=== PATIENT | female | born 1980 | race Caucasian/White ===

== ENCOUNTER 2018-04-12 14:02 | Emergency (ER) | payer OTHER ==
[~2018-04-12] VITALS: Ht 162.6 cm; Wt 106.8 kg
[~2018-04-12 14:02] MED LIST: OXYC-57 PO; PHEN-775 PO; TAMS0.4C38 PO
[2018-04-12 14:04] VITALS: TEMP 36.8; Ht 162.6 cm; Wt 106.8 kg
[2018-04-12] MEDS ORDERED: CEFAZOLIN SOD 1000MG/7.5 ML IV PUSH IV STA (14:23)
[2018-04-12] MEDS ORDERED: MoRPHine SULFATE 4 MG/ML 1 ML CARP\\VIAL IV STA (14:23)
[2018-04-12] MEDS ORDERED: ONDANSETRON INJ 2 MG/ML 2 ML VIAL IV STA (14:23)
[2018-04-12] MEDS ORDERED: LIDOCAINE/EPINEPHRINE 1% 20 ML VIAL INFIL ONE (14:30)
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
[2018-04-12] MEDS ORDERED: CEPHALEXIN 500MG HOME PACK 1 EA BTL PO ONE (16:00)
[2018-04-12] MEDS ORDERED: CEPH500C2 PO (16:16)
[2018-04-12 16:47] VITALS: BP 142/96; PULSE 85; O2SAT 96
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
== END 2018-04-12 16:48 | disposition home or self-care (01) ==
LOC: C.EDB 14:04 → C.EDC 16:48
DX: S61.422A Laceration with foreign body of left hand, initial encounter (principal); S63.265A Dislocation of metacarpophalangeal joint of left ring finger, initial encounter; S66.922A Laceration of unspecified muscle, fascia and tendon at wrist and hand level, left hand, initial encounter; V86.55XA Driver of 3- or 4- wheeled all-terrain vehicle (ATV) injured in nontraffic accident, initial encounter; F17.210 Nicotine dependence, cigarettes, uncomplicated; Z79.899 Other long term (current) drug therapy

== ENCOUNTER 2018-04-22 12:05 | Emergency (ER) | payer OTHER ==
[~2018-04-22] VITALS: Ht 162.6 cm; Wt 106.4 kg
[~2018-04-22 12:05] MED LIST changes: +CEPH500C2 PO
[2018-04-22 12:08] VITALS: TEMP 36.6
[2018-04-22] MEDS ORDERED: KETOROLAC TROMETHAMINE 30 MG/ML VIAL IV STA (12:26)
[2018-04-22] MEDS ORDERED: ONDANSETRON INJ 2 MG/ML 2 ML VIAL IV STA (12:26)
[2018-04-22] MEDS ORDERED: SODIUM CHLORIDE 0.9% 500ML 500 ML IV STA (12:26)
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
[2018-04-22 12:37] VITALS: O2SAT 98; Ht 162.6 cm; Wt 106.4 kg
[2018-04-22 12:48] LABS: BASO % 0.3 %; BASO ABS # 0.04 K/uL (0-0.2); EOS % 2.5 %; EOS ABS # 0.31 K/uL (0-0.5); HEMATOCRIT 46.1 % (37-47); HEMOGLOBIN 15.7 g/dL (12.0-16.0); IG# 0.08 K/uL (0.00-0.02); LYMPH % 20.6 %; LYMPH ABS # 2.54 K/uL (1.2-3.4); MEAN CELL VOLUME 91.7 fL (80-100); MEAN CORPUSCULAR HEMOGLOBIN 31.2 pg (25-34); MEAN CORPUSCULAR HGB CONC 34.1 g/dl (32-36); MEAN PLATELET VOLUME 9.2 fL (7.4-10.4); MONO % 5.4 %; MONO ABS # 0.67 K/uL (0.11-0.59); NEUT % 70.6 %; NEUT ABS # 8.71 K/uL (1.4-6.5); PLATELET COUNT 328 K/uL (130-400); RED CELL DISTRIBUTION WIDTH CV 13.7 % (11.5-14.5); RED CELL DISTRIBUTION WIDTH SD 46.1 fL (36.4-46.3); WHITE BLOOD COUNT 12.35 K/uL (4.8-10.8)
[2018-04-22 12:56] LABS: INR 0.9 (0.9-1.1); PTT PATIENT 27.3 SECONDS (21.0-31.0)
[2018-04-22] MEDS ORDERED: BUPR150T7 PO (12:57)
[2018-04-22] MEDS ORDERED: FLUO20CA37 PO (12:57)
[2018-04-22] MEDS ORDERED: MELO-84 PO (12:57)
[2018-04-22 13:06] LABS: ALBUMIN 3.6 gm/dl (3.4-5.0); CALCIUM 9.1 mg/dl (8.5-10.1); CREATININE 0.86 mg/dl (0.60-1.20); POTASSIUM 4.2 mmol/L (3.5-5.1); TOTAL PROTEIN 7.6 gm/dl (6.4-8.2)
[2018-04-22 13:52] VITALS: BP 127/80; PULSE 80; O2SAT 99
== END 2018-04-22 13:53 | disposition home or self-care (01) ==
LOC: C.EDB 12:06 → C.EDC 13:53
DX: R42 Dizziness and giddiness (principal); N93.9 Abnormal uterine and vaginal bleeding, unspecified; F17.200 Nicotine dependence, unspecified, uncomplicated; Z79.899 Other long term (current) drug therapy; Z88.2 Allergy status to sulfonamides

== ENCOUNTER 2020-03-19 21:39 | Inpatient (IN) ==
[2020-03-19] MEDS ORDERED: MoRPHine SULFATE 4 MG/ML 1 ML CARP\\VIAL IV STA (21:48)
[2020-03-19] MEDS ORDERED: ONDANSETRON INJ 2 MG/ML 2 ML VIAL IV STA (21:48)
[2020-03-19] MEDS ORDERED: SODIUM CHLORIDE 0.9% 1000ML 1,000 ML IV ONE ×2 (21:48→22:01)
[2020-03-19] MEDS ORDERED: PIPERACILLIN/TAZOBACTAM 4.5 GM/120 ML BAG IV ONE (21:56)
[2020-03-19] MEDS ORDERED: PIPERACILL/TAZOBAC CONSULT ACTIVE PRN (21:56)
[2020-03-19 22:20] LABS: Appearance Urine Clear (Clear); Bacteria Urine Automated 2+ (Negative); Bilirubin Urine Negative (Negative); Blood Urine 2+ (Negative); Color Urine Yellow; Glucose Urine UA Negative (Negative); Ketones Urine Negative (Negative); Leukocyte Esterase Urine 2+ (Negative); Nitrite Urine Negative (Negative); Protein Urine Negative (Negative); Specific Gravity Urine 1.013 (1.000-1.030); Urobilinogen Urine Negative (Negative); WBC Urine Automated >30 /hpf (0-5)
[2020-03-19 22:50] LABS: Basophils # (auto) 0.02 K/uL (0-0.2); Basophils % (auto) 0.1 %; Eosinophils # (auto) 0.04 K/uL (0-0.5); Eosinophils % (auto) 0.2 %; Hematocrit (blood only) 41.4 % (37-47); Hemoglobin 13.9 g/dL (12.0-16.0); Immature Granulocytes # (auto) 0.07 K/uL (0.00-0.02); Immature Granulocytes % (auto) 0.3 %; Lymphocytes # (auto) 1.08 K/uL (1.2-3.4); Lymphocytes % (auto) 5.4 %; Mean Corpuscular Hemoglobin 30.3 pg (25-34); Mean Corpuscular Hgb Conc 33.6 g/dL (32-36); Mean Corpuscular Volume 90.4 fL (80-100); Mean Platelet Volume 9.9 fL (7.4-10.4); Monocytes # (auto) 1.22 K/uL (0.11-0.59); Monocytes % (auto) 6.1 %; Neutrophils # (auto) 17.71 K/uL (1.4-6.5); Neutrophils % (auto) 87.9 %; Platelet Count 284 K/uL (130-400); RDW Coefficient of Variation 14.1 % (11.5-14.5); RDW Standard Deviation 46.9 fL (36.4-46.3); Red Blood Count 4.58 M/uL (4.2-5.4); White Blood Count 20.14 K/uL (4.8-10.8)
[2020-03-19 23:00] LABS: Albumin Level 3.6 gm/dl (3.4-5.0); BUN Creatinine Ratio 15.6 (10-20); Calcium 8.8 mg/dl (8.5-10.1); Creatinine Clr Calc Pharmacy 69.7 ml/min; Est GFR (African American) 58.9; Est GFR (Non-African American) 50.8; Magnesium 1.9 mg/dl (1.8-2.4); Potassium 3.7 mmol/L (3.5-5.1)
[2020-03-19 23:01] LABS: Partial Thromboplastin Ratio 1.1; Partial Thromboplastin Time 29.9 Seconds (21.0-31.0); Prothrombin Time 10.3 Seconds (9.0-12.0)
[2020-03-19 23:03] LABS: Bilirubin,Total 0.9 mg/dl (0.2-1); Globulin 3.7 gm/dl (2.5-4.0); Total Protein 7.3 gm/dl (6.4-8.2)
[2020-03-19] MEDS ORDERED: NORMOSOL-R 1,000 ML IV ONE (23:13)
[2020-03-19] MEDS ORDERED: POTASSIUM CHLORIDE 20 MEQ TABCR PO STA (23:13)
--- NOTE | 2020-03-19 23:15 | Emergency Department Note ---
History of Present Illness General Chief complaint: Kidney Stone Stated complaint: FEVER History of Present Illness Maximum Pain Intensity: 4 This 39-year-old presents to the ER complaining of fever, chills, flank pain and nausea who was seen here last night and diagnosed with a kidney stone Location: Generalized Quality: Achy Severity: Moderate Duration: Today Timing: Today Context: Patient felt much worse and came back in Modifying factors: better with nothing; worse with activity Patient states she had temperature of 99.9. She took Percocet. Patient felt quite ill and came back in. Patient denies cough, congestion, chest pain, dyspnea, flulike illness. Home Medications Home Medications Medication Instructions Recorded Confirmed Type bupropion HCl [Wellbutrin SR] 150 mg PO Q12 06/17/19 03/19/20 History fluoxetine 60 mg PO DAILY 03/19/20 03/19/20 History ibuprofen 600 mg PO Q6H PRN 03/19/20 03/19/20 History oxycodone-acetaminophen [Percocet] 2 tab PO Q6H PRN #20 tab 03/19/20 03/19/20 Rx tamsulosin [Flomax] 0.4 mg PO DAILY #7 cap 03/19/20 03/19/20 Rx Allergies Allergy/AdvReac Type Severity Reaction Status Date / Time Sulfa (Sulfonamide Allergy Severe TONGUE Verified 03/19/20 05:18 Antibiotics) SWELLING Past Med/Surg History Medical History Left ureteral calculus (Acute) No significant past medical history Surgical History No pertinent past surgical history Social History Feels Safe at Home: Yes Smoking Status: Current every day smoker Review of Systems A total of 10 systems reviewed and were otherwise negative Physical Exam Vital Signs Vital Signs - 24 hr 03/19/20 21:42 03/19/20 21:56 03/19/20 22:28 Temperature 37.2 C Temperature Source Oral Pulse Rate 120 H Pulse Rate [Apical] 114 H Respiratory Rate 12 18 Respiratory Effort / Characteristics Non-Labored Spontaneous Respiratory Depth Normal Blood Pressure 148/87 H Blood Pressure [Left Arm] 116/60 Blood Pressure Mean 107 Blood Pressure Mean [Left Arm] 78 Pulse Oximetry 98 96 98 Oxygen Delivery Method Room Air Room Air Room Air Sepsis Recent Fever Within 48 Hours No Sepsis New/Unexplained Change in Mental Status No Sepsis Action Taken by Nursing No Action Required 03/19/20 23:30 Temperature Temperature Source Pulse Rate Pulse Rate [Apical] 120 H Respiratory Rate 21 Respiratory Effort / Characteristics Respiratory Depth Blood Pressure Blood Pressure [Left Arm] 124/69 Blood Pressure Mean Blood Pressure Mean [Left Arm] 87 Pulse Oximetry 95 Oxygen Delivery Method Room Air Sepsis Recent Fever Within 48 Hours Sepsis New/Unexplained Change in Mental Status Sepsis Action Taken by Nursing VITALS: Vitals are noted on the nurse's note and reviewed by myself. Vital signs tachycardic. GENERAL: Pleasant female ill-appearing SKIN: The skin was without rashes, erythema, edema, or bruising. There is no tenting of the skin. Capillary reflex less than 2 seconds. HEAD: Normocephalic atraumatic. EARS: External auditory canals clear, tympanic membranes pearly cerrato without erythema or effusion bilaterally. EYES: Pupils equal round and reactive to light and accommodation. Conjunctivae without injection, sclerae without icterus. Extraocular movements intact. NOSE: Patent, turbinates without inflammation or discharge. No sinus tenderness. MOUTH: Mucous membranes mildly dry t. Pharynx without erythema or exudate. Uvula midline. Airway patent. Tongue does not deviate. NECK: Supple without nuchal rigidity. No lymphadenopathy. No thyromegaly. Cervical spine is nontender. No JVD. HEART: Regular rate and rhythm without murmurs gallops or rubs. LUNGS: Clear to auscultation bilaterally without wheezes, rales or rhonchi. No retractions or accessory muscle use. ABDOMEN: Positive bowel sounds x 4. Normal tympanic percussion. Soft, nontender, without masses or organomegaly. Law sign negative. No guarding or rebound tenderness. Left CVA tenderness MUSCULOSKELETAL: No muscle atrophy, erythema, or edema noted. NEURO: Patient was alert and oriented to person place and time. No focal neurological deficits. Course Administered Medications Discontinued Medications Sodium Chloride (Nss 1000ml) 1,000 mls @ 999 mls/hr IV .Q1H1M ONE Stop: 03/19/20 22:48 Last Infusion: 03/19/20 23:33 Dose: 0 mls/hr Documented by: [id number] Admin: 03/19/20 22:24 Dose: 999 mls/hr Documented by: [id number] Piperacillin Sod/Tazobactam Sod (Zosyn) 4.5 gm in 120 mls @ 240 mls/hr IV NOW ONE Stop: 03/19/20 22:25 Last Infusion: 03/19/20 22:58 Dose: 0 mls/hr Documented by: [id number] Admin: 03/19/20 22:25 Dose: 240 mls/hr Documented by: [id number] Sodium Chloride (Nss 1000ml) 1,000 mls @ 999 mls/hr IV .Q1H1M ONE Stop: 03/19/20 23:01 Last Infusion: 03/19/20 23:33 Dose: 0 mls/hr Documented by: [id number] Admin: 03/19/20 22:24 Dose: 999 mls/hr Documented by: [id number] Morphine Sulfate (Morphine Sulfate) 4 mg IV NOW STA Stop: 03/19/20 21:49 Last Admin: 03/19/20 22:24 Dose: 4 mg Documented by: [id number] Ondansetron HCl (Zofran) 4 mg IV NOW STA Stop: 03/19/20 21:49 Last Admin: 03/19/20 22:24 Dose: 4 mg Documented by: [id number] Potassium Chloride (Klor-Con M20) 40 meq PO NOW STA Stop: 03/19/20 23:14 Last Admin: 03/19/20 23:30 Dose: 40 meq Documented by: [id number] Medical Decision Making Medical Records Attestation: I reviewed the patient's medical records. Home Medications Current Medication List: was personally reviewed by me Laboratory Data Attestation: I reviewed the patient's lab results. Result diagrams: 03/19/20 22:16 03/19/20 22:16 Lab Results 03/19/20 03/19/20 03/19/20 Range/Units 22:00 22:16 22:16 WBC 20.14 H (4.8-10.8) K/uL RBC 4.58 (4.2-5.4) M/uL Hgb 13.9 (12.0-16.0) g/dL Hct 41.4 (37-47) % MCV 90.4 (80-100) fL MCH 30.3 (25-34) pg MCHC 33.6 (32-36) g/dL RDW Std Deviation 46.9 H (36.4-46.3) fL RDW Coeff of Aniket 14.1 (11.5-14.5) % Plt Count 284 (130-400) K/uL MPV 9.9 (7.4-10.4) fL Immature Gran % (Auto) 0.3 % Neut % (Auto) 87.9 % Lymph % (Auto) 5.4 % [place] % (Auto) 6.1 % Eos % (Auto) 0.2 % Baso % (Auto) 0.1 % Neut # (Auto) 17.71 H (1.4-6.5) K/uL Lymph # (Auto) 1.08 L (1.2-3.4) K/uL [place] # (Auto) 1.22 H (0.11-0.59) K/uL Eos # (Auto) 0.04 (0-0.5) K/uL Baso # (Auto) 0.02 (0-0.2) K/uL Immature Gran # (Auto) 0.07 H (0.00-0.02) K/uL PT (9.0-12.0) Seconds INR (0.9-1.1) APTT (21.0-31.0) Seconds PTT Ratio Sodium 135 L (136-145) mmol/L Potassium 3.7 (3.5-5.1) mmol/L Chloride 104 (98-107) mmol/L Carbon Dioxide 23 (21-32) mmol/L Anion Gap 9.0 (3-11) BUN 20 H (7-18) mg/dl Creatinine 1.31 H (0.6-1.2) mg/dl Est Cr Clr Drug Dosing 69.7 ml/min Est GFR ( Amer) 58.9 Est GFR (Non-Af Amer) 50.8 BUN/Creatinine Ratio 15.6 (10-20) Glucose 108 H (70-99) mg/dl Lactate (0.4-2.0) mmol/L Calcium 8.8 (8.5-10.1) mg/dl Magnesium 1.9 (1.8-2.4) mg/dl Total Bilirubin 0.9 (0.2-1) mg/dl AST 14 L (15-37) U/L ALT 25 (12-78) U/L Alkaline Phosphatase 74 (45-117) U/L Total Protein 7.3 (6.4-8.2) gm/dl Albumin 3.6 (3.4-5.0) gm/dl Globulin 3.7 (2.5-4.0) gm/dl Albumin/Globulin Ratio 1.0 (0.9-2) Urine Color Yellow Urine Appearance Clear (Clear) Urine pH 6.0 (4.5-7.5) Ur Specific [place] 1.013 (1.000-1.030) Urine Protein Negative (Negative) Urine Glucose (UA) Negative (Negative) Urine Ketones Negative (Negative) Urine Blood 2+ H (Negative) Urine Nitrite Negative (Negative) Urine Bilirubin Negative (Negative) Urine Urobilinogen Negative (Negative) Ur Leukocyte Esterase 2+ H (Negative) Urine WBC (Auto) >30 H (0-5) /hpf Urine RBC (Auto) 5-10 H (0-4) /hpf U Hyaline Cast (Auto) 1-5 (0-5) /lpf U Epithel Cells (Auto) 10-20 H (0-5) /lpf Urine Bacteria (Auto) 2+ H (Negative) 03/19/20 03/19/20 Range/Units 22:39 22:39 WBC (4.8-10.8) K/uL RBC (4.2-5.4) M/uL Hgb (12.0-16.0) g/dL Hct (37-47) % MCV (80-100) fL MCH (25-34) pg MCHC (32-36) g/dL RDW Std Deviation (36.4-46.3) fL RDW Coeff of Aniket (11.5-14.5) % Plt Count (130-400) K/uL MPV (7.4-10.4) fL Immature Gran % (Auto) % Neut % (Auto) % Lymph % (Auto) % [place] % (Auto) % Eos % (Auto) % Baso % (Auto) % Neut # (Auto) (1.4-6.5) K/uL Lymph # (Auto) (1.2-3.4) K/uL [place] # (Auto) (0.11-0.59) K/uL Eos # (Auto) (0-0.5) K/uL Baso # (Auto) (0-0.2) K/uL Immature Gran # (Auto) (0.00-0.02) K/uL PT 10.3 (9.0-12.0) Seconds INR 1.0 (0.9-1.1) APTT 29.9 (21.0-31.0) Seconds PTT Ratio 1.1 Sodium (136-145) mmol/L Potassium (3.5-5.1) mmol/L Chloride (98-107) mmol/L Carbon Dioxide (21-32) mmol/L Anion Gap (3-11) BUN (7-18) mg/dl Creatinine (0.6-1.2) mg/dl Est Cr Clr Drug Dosing ml/min Est GFR ( Amer) Est GFR (Non-Af Amer) BUN/Creatinine Ratio (10-20) Glucose (70-99) mg/dl Lactate 1.9 (0.4-2.0) mmol/L Calcium (8.5-10.1) mg/dl Magnesium (1.8-2.4) mg/dl Total Bilirubin (0.2-1) mg/dl AST (15-37) U/L ALT (12-78) U/L Alkaline Phosphatase (45-117) U/L Total Protein (6.4-8.2) gm/dl Albumin (3.4-5.0) gm/dl Globulin (2.5-4.0) gm/dl Albumin/Globulin Ratio (0.9-2) Urine Color Urine Appearance (Clear) Urine pH (4.5-7.5) Ur Specific [place] (1.000-1.030) Urine Protein (Negative) Urine Glucose (UA) (Negative) Urine Ketones (Negative) Urine Blood (Negative) Urine Nitrite (Negative) Urine Bilirubin (Negative) Urine Urobilinogen (Negative) Ur Leukocyte Esterase (Negative) Urine WBC (Auto) (0-5) /hpf Urine RBC (Auto) (0-4) /hpf U Hyaline Cast (Auto) (0-5) /lpf U Epithel Cells (Auto) (0-5) /lpf Urine Bacteria (Auto) (Negative) Imaging Data Attestation: I personally reviewed and interpreted this imaging study as follows: Blood Pressure Blood Pressure Findings: Normal blood pressure MDM Narrative Prior records/ancillary studies reviewed. Triage Nursing notes reviewed. The patient's history was concerning for fever. Differential diagnosis: Etiologies such as infected kidney stone, viral syndrome, otitis, pharyngitis, pneumonia, influenza, meningitis, urinary tract infection, sepsis, bacteremia, as well as others were entertained. Physical examination: As above ER treatment provided: An order was placed for continuous cardiac monitoring. The monitor shows a rate of 60-1 20 with a sinus rhythm. IV fluids, morphine, Zofran, Zosyn On reassessment the patient felt better. Diagnostics interpreted by me: ECG: Ordered for sepsis EKG: Normal sinus, normal intervals, no acute ST-T wave changes, rate of 117. Impression sinus tachycardia interpreted myself I think arrhythmia is unlikely. EKG shows normal sinus rhythm with no interval abnormalities such as QT prolongation or WPW. There are no findings to suggest Brugada syndrome. Cardiac monitoring in the emergency department reveals no tachycardic or bradycardic dysrhythmia. Hypertrophic cardiomyopathy was considered but there are no clear historical elements pointing toward this. EKG is not suggestive. The QRS voltage is not extremely large and there are no suggestive Q waves. The labs revealed leukocytosis, urine concerning for infection and sent for culture Blood cultures pending Slightly elevated creatinine from yesterday Imaging studies: Chest x-ray with no acute consolidation, pneumothorax or free air per my interpretation ABDOMEN AND PELVIS CT WITHOUT CONTRAST CT DOSE: 1322.60 mGy.cm HISTORY: Acute left-sided flank pain with clinical concern for kidney stones. eval for left sided stone TECHNIQUE: Multiaxial CT images of the abdomen and pelvis were performed without contrast. A dose lowering technique was utilized adhering to the principles of ALARA. COMPARISON STUDY: CT abdomen and pelvis 08/09/2013 FINDINGS: Minimal subsegmental bibasilar atelectasis. No pneumatosis or pneumoperitoneum. The imaged inferior cardiac chambers appear unremarkable. There is suggestion of mild hepatic steatosis. Evaluation of the solid abdominal organs is limited without use of IV contrast. The spleen, pancreas and adrenal glands are unr emarkable. 4 mm nonobstructing calculus of the inferior pole right kidney. There is moderate left-sided hydroureteronephrosis secondary to an obstructing 6 x 4 x 8 mm calculus of the proximal left ureter just distal to the ureteropelvic junction seen at the level of the L2 vertebral body. Reactive perinephric and periureteral stranding. Partially decompressed urinary bladder. Mild nodularity of the fundal uterus may reflect while myomata. Unremarkable appearance of the adnexa. Aorta and IVC are unremarkable. No adenopathy. No bowel obstruction or bowel wall thickening. Mild colonic diverticulosis without acute diverticulitis. Noninflamed appendix. Tiny fat filled periumbilical hernia. Soft tissues are unremarkable. Spondylitic spurring and facet arthrosis of the lumbar spine incidentally noted. IMPRESSION: 1. Moderate left-sided hydroureteronephrosis secondary to an obstructing 6 x 4 x 8 mm calculus of the proximal left ureter just distal to the ureteropelvic junction at the level of L2. 2. Nonobstructing right nephrolithiasis. 3. No bowel obstruction or bowel wall thickening. ACT 112: Negative or not required by law. KUB with no free air or obvious obstruction per my interpretation. Consultation: A consultation was placed with Dr. Ortega, hospitalist. The case was discussed and diagnostics were reviewed. The patient was evaluated in the ER for further treatment. This appears to be consistent with infected kidney stone. Patient was immediately started on IV antibiotics. Patient given IV fluids, pain meds and blood cultures were sent. Medicine was consulted. Patient will be admitted. By the evaluation outlined above emergent etiologies such as otitis, pharyngitis, pneumonia, meningitis, as well as others were deemed relatively unlikely. The pt informed about the findings as listed above. All questions were answered and pleased with the treatment. The chart was completed utilizing [employer] Speech voice recognition software. Grammatical errors, random word insertions, pronoun errors, and incomplete sentences are an occassional consequence of this system due to software limitations, ambient noise, and hardware issues. Any formal questions or concerns about the content, text, or information contained within the body of this dictation should be directly addressed to the physician learning and development assistant for clarification. Impression & Plan UTI (lower urinary tract infection), Left ureteral calculus, Renal colic Discharge Plan Visit Data Chief Complaint: Kidney Stone Stated Complaint: FEVER ED Provider: Kevyn Valdovinos ED Midlevel Provider: Leidy Cheatham Discharge Problem: UTI (lower urinary tract infection), Left ureteral calculus, Renal colic Patient Disposition: Admitted As Inpatient Condition: Fair Forms Stand Alone Forms: My [facility] Prescriptions Prescriptions: No Action bupropion HCl [Wellbutrin SR] 150 mg Tablet Sustained-Release 12 Hr 150 mg PO Q12 RF: 0 fluoxetine 60 mg Tablet 60 mg PO DAILY RF: 0 oxycodone-acetaminophen [Percocet] 5-325 mg tablet 2 tab PO Q6H PRN (Reason: pain) Qty: 20 RF: 0 tamsulosin [Flomax] 0.4 mg capsule 0.4 mg PO DAILY Qty: 7 RF: 0 ibuprofen 200 mg Tablet 600 mg PO Q6H PRN (Reason: Pain) RF: 0 Referrals Referrals: Lai Kathleen MD [Primary Care Provider] -
[2020-03-19] MEDS ORDERED: NORMOSOL-R 250 ML IV STA (23:22)
--- NOTE | 2020-03-20 00:24 | History & Physical Report ---
Date of Service March 20, 2020 Assessment & Plan (1) Severe sepsis: SIRS plus ARF secondary to complicated UTI obstructive uropathy secondary to recurrent urolithiasis Situational hypertension mood disorder, at baseline Ongoing tobacco abuse Medical telemetry Cultures, Cefepime for now Continue Flomax Monitor creatinine response to IVF Urology consult Re: Obstructive uropathy N.p.o. until patient seen by urology in anticipation of urgent procedure in light of sepsis Analgesia Nicotine patch DVT prophylaxis. Lovenox subcu Full code Text document was generated using [employer] voice recognition software. It may contain grammatical or spelling errors. Kindly contact undersigned for clarification of any documentation item in question. History of Present Illness Chief Complaint: Fever, worsening kidney stone pain Primary Care Provider: Lai Kathleen MD History obtained from patient and records. Medical history is significant for urolithiasis, mood disorder, PCOS as per records, tobacco abuse. Last confinement 2012 for complicated UTI secondary to obstructive uropathy from left kidney stone. Patient underwent cystoscopy/stent placement. Patient seen at the ER yesterday metal cutter after being roused from sleep by 80 left flank pain similar to kidney stone attack. No fever, no chills, no hematuria. CT abdomen pelvis yesterday morning showed : 1. Moderate left-sided hydroureteronephrosis secondary to an obstructing 6 x 4 x 8 mm calculus of the proximal left ureter just distal to the ureteropelvic junction at the level of L2. 2. Nonobstructing right nephrolithiasis. 3. No bowel obstruction or bowel wall thickening. Patient discharged home with Flomax and Percocet prescriptions, in early hope of being able to pass stone at home. At home, left flank pain noted to be worsening unrelieved by pain medication. Low-grade fever at home. No chest pain, no S OB. At baseline, patient received Zosyn for sepsis. MEDICAL HISTORY: As above. SURGICAL HISTORY: 1. Tubal ligation. 2. Lithotripsy. FAMILY HISTORY: Kidney stones, diabetes. PERSONAL SOCIAL HISTORY: 1 pack daily, no chronic intake of alcoholic beverages. 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 Allergies Allergy/AdvReac Type Severity Reaction Status Date / Time Sulfa (Sulfonamide Allergy Severe TONGUE Verified 03/19/20 05:18 Antibiotics) SWELLING Home Medications Home Medications Medication Instructions Recorded Confirmed Type bupropion HCl [Wellbutrin SR] 150 mg PO Q12 06/17/19 03/19/20 History fluoxetine 60 mg PO DAILY 03/19/20 03/19/20 History ibuprofen 600 mg PO Q6H PRN 03/19/20 03/19/20 History oxycodone-acetaminophen [Percocet] 2 tab PO Q6H PRN #20 tab 03/19/20 03/19/20 Rx tamsulosin [Flomax] 0.4 mg PO DAILY #7 cap 03/19/20 03/19/20 Rx Past Med/Surg History Medical History Left ureteral calculus (Acute) Morbid obesity No significant past medical history Surgical History No pertinent past surgical history Social History Beliefs That Will Affect Care: None Current Living Situation: Family Other Information That Helps Us Care for You: No Feels Safe at Home: Yes Safety Concerns: Feels Safe At This Time Smoking Status: Current every day smoker Hx Substance Use: No Review of Systems Review of Systems: As per HPI, all 10 systems reviewed, left ankle pain for a few months now attributed by Ortho specialist to tendinitis, all other ROS negative Physical Exam Physical Exam: GENERAL: uncomfortable, obese, looks older than stated age, no respiratory distress SKIN: Normal color, warm HEENT: Bespectacled, [place] palpebral conjunctivae, no ptosis, dry buccal mucosa NECK : Supple, short neck, no tenderness CHEST : Decreased breath sounds, no tenderness HEART : Tachycardic, no obvious murmurs ABDOMEN: Some distention, left flank tenderness EXTREMITIES : Minimal LE swelling, no LE tenderness, no other conspicuous deformities noted NEUROLOGIC : Coherent, no facial asymmetry, no other gross focality Results & Data Results & Data ([facility]) Vital Signs (Past 12 Hours) Vital Signs Temp Pulse Pulse Resp BP BP Pulse Ox 03/19/20 23:30 120 H 21 124/69 95 03/19/20 22:28 114 H 18 116/60 98 03/19/20 21:56 96 03/19/20 21:42 37.2 C 120 H 12 148/87 H 98 Laboratory Results Laboratory Results WBC 20.14 K/uL (4.8-10.8) H 03/19/20 22:16 RBC 4.58 M/uL (4.2-5.4) 03/19/20 22:16 Hgb 13.9 g/dL (12.0-16.0) 03/19/20 22:16 Hct 41.4 % (37-47) 03/19/20 22:16 MCV 90.4 fL (80-100) 03/19/20 22:16 MCH 30.3 pg (25-34) 03/19/20 22:16 MCHC 33.6 g/dL (32-36) 03/19/20 22:16 RDW Std Deviation 46.9 fL (36.4-46.3) H 03/19/20 22:16 RDW Coeff of Aniket 14.1 % (11.5-14.5) 03/19/20 22:16 Plt Count 284 K/uL (130-400) 03/19/20 22:16 MPV 9.9 fL (7.4-10.4) 03/19/20 22:16 Immature Gran % (Auto) 0.3 % 03/19/20 22:16 Neut % (Auto) 87.9 % 03/19/20 22:16 Lymph % (Auto) 5.4 % 03/19/20 22:16 [place] % (Auto) 6.1 % 03/19/20 22:16 Eos % (Auto) 0.2 % 03/19/20 22:16 Baso % (Auto) 0.1 % 03/19/20 22:16 Neut # (Auto) 17.71 K/uL (1.4-6.5) H 03/19/20 22:16 Lymph # (Auto) 1.08 K/uL (1.2-3.4) L 03/19/20 22:16 [place] # (Auto) 1.22 K/uL (0.11-0.59) H 03/19/20 22:16 Eos # (Auto) 0.04 K/uL (0-0.5) 03/19/20 22:16 Baso # (Auto) 0.02 K/uL (0-0.2) 03/19/20 22:16 Immature Gran # (Auto) 0.07 K/uL (0.00-0.02) H 03/19/20 22:16 PT 10.3 Seconds (9.0-12.0) 03/19/20 22:39 INR 1.0 (0.9-1.1) 03/19/20 22:39 APTT 29.9 Seconds (21.0-31.0) 03/19/20 22:39 PTT Ratio 1.1 03/19/20 22:39 Sodium 135 mmol/L (136-145) L 03/19/20 22:16 Potassium 3.7 mmol/L (3.5-5.1) 03/19/20 22:16 Chloride 104 mmol/L (98-107) 03/19/20 22:16 Carbon Dioxide 23 mmol/L (21-32) 03/19/20 22:16 Anion Gap 9.0 (3-11) 03/19/20 22:16 BUN 20 mg/dl (7-18) H 03/19/20 22:16 Creatinine 1.31 mg/dl (0.6-1.2) H 03/19/20 22:16 Est Cr Clr Drug Dosing 69.7 ml/min 03/19/20 22:16 Est GFR ( Amer) 58.9 03/19/20 22:16 Est GFR (Non-Af Amer) 50.8 03/19/20 22:16 BUN/Creatinine Ratio 15.6 (10-20) 03/19/20 22:16 Glucose 108 mg/dl (70-99) H 03/19/20 22:16 Lactate 1.9 mmol/L (0.4-2.0) 03/19/20 22:39 Calcium 8.8 mg/dl (8.5-10.1) 03/19/20 22:16 Magnesium 1.9 mg/dl (1.8-2.4) 03/19/20 22:16 Total Bilirubin 0.9 mg/dl (0.2-1) 03/19/20 22:16 AST 14 U/L (15-37) L 03/19/20 22:16 ALT 25 U/L (12-78) 03/19/20 22:16 Alkaline Phosphatase 74 U/L (45-117) 03/19/20 22:16 Total Protein 7.3 gm/dl (6.4-8.2) 03/19/20 22:16 Albumin 3.6 gm/dl (3.4-5.0) 03/19/20 22:16 Globulin 3.7 gm/dl (2.5-4.0) 03/19/20 22:16 Albumin/Globulin Ratio 1.0 (0.9-2) 03/19/20 22:16 Urine Color Yellow 03/19/20 22:00 Urine Appearance Clear (Clear) 03/19/20 22:00 Urine pH 6.0 (4.5-7.5) 03/19/20 22:00 Ur Specific [place] 1.013 (1.000-1.030) 03/19/20 22:00 Urine Protein Negative (Negative) 03/19/20 22:00 Urine Glucose (UA) Negative (Negative) 03/19/20 22:00 Urine Ketones Negative (Negative) 03/19/20 22:00 Urine Blood 2+ (Negative) H 03/19/20 22:00 Urine Nitrite Negative (Negative) 03/19/20 22:00 Urine Bilirubin Negative (Negative) 03/19/20 22:00 Urine Urobilinogen Negative (Negative) 03/19/20 22:00 Ur Leukocyte Esterase 2+ (Negative) H 03/19/20 22:00 Urine WBC (Auto) >30 /hpf (0-5) H 03/19/20 22:00 Urine RBC (Auto) 5-10 /hpf (0-4) H 03/19/20 22:00 U Hyaline Cast (Auto) 1-5 /lpf (0-5) 03/19/20 22:00 U Epithel Cells (Auto) 10-20 /lpf (0-5) H 03/19/20 22:00 Urine Bacteria (Auto) 2+ (Negative) H 03/19/20 22:[address] abdomen pelvis from 03/19/2020 as per HPI Chest x-ray as per interpretation no congestion EKG as per my interpretation : Rate 120, sinus tachycardia, normal axis, LAE, T wave abnormalities inferior leads
[2020-03-20] MEDS ORDERED: NICOTINE 21 MG/24 HR TDSY TD PRN (00:25)
[2020-03-20] MEDS ORDERED: PROMETHAZINE HCL 12.5 MG in SODIUM CHLORIDE 0.9% 50 ML IV PRN (01:50)
[2020-03-20] MEDS ORDERED: CEFEPIME CONSULT ACTIVE PRN (01:50)
[2020-03-20] MEDS ORDERED: MAGNESIUM SULFATE / D5W 1 GM/100 ML BAG IV ONE (02:00)
[2020-03-20] MEDS ORDERED: NSS + 20MEQ KCL 20 MEQ/1,000 ML BAG IV SCH (02:00)
[2020-03-20] MEDS: CEFEPIME 2,000 MG in SYRINGE 7.5 ML IV SCH ×2 (02:19→14:31)
[2020-03-20] MEDS: HYDROmorphone INJ 0.5 MG/0.5 ML SYR IV PRN ×2 (02:19→06:20)
[2020-03-20 02:52] LABS: Pregnancy Test, Urine Negative (Negative)
[2020-03-20] MEDS ORDERED: ACETAMINOPHEN 325 MG TAB PO STA (03:51)
[2020-03-20] MEDS ORDERED: LACTATED RINGER'S 1,000 ML IV ONE (04:58)
[2020-03-20 07:23] LABS: Basophils # (auto) 0.02 K/uL (0-0.2); Basophils % (auto) 0.1 %; Eosinophils # (auto) 0.01 K/uL (0-0.5); Hematocrit (blood only) 38.9 % (37-47); Hemoglobin 12.6 g/dL (12.0-16.0); Immature Granulocytes # (auto) 0.08 K/uL (0.00-0.02); Immature Granulocytes % (auto) 0.4 %; Lymphocytes # (auto) 0.79 K/uL (1.2-3.4); Lymphocytes % (auto) 3.8 %; Mean Corpuscular Hgb Conc 32.4 g/dL (32-36); Mean Corpuscular Volume 92.6 fL (80-100); Mean Platelet Volume 10.1 fL (7.4-10.4); Monocytes # (auto) 1.71 K/uL (0.11-0.59); Monocytes % (auto) 8.2 %; Neutrophils # (auto) 18.18 K/uL (1.4-6.5); Neutrophils % (auto) 87.5 %; Platelet Count 270 K/uL (130-400); RDW Coefficient of Variation 14.4 % (11.5-14.5); RDW Standard Deviation 48.8 fL (36.4-46.3); White Blood Count 20.79 K/uL (4.8-10.8)
--- NOTE | 2020-03-20 07:37 | Urology Consultation ---
Date of Consultation March 20, 2020 Assessment & Plan (1) Left ureteral calculus: 39-year-old female with suspected sepsis secondary to a urinary tract infection and obstructing left ureteral calculus Reviewed her imaging, and chart and I feel that she requires emergent intervention in the form of cystoscopy left ureteral stent placement Continue supportive care with aggressive IV hydration and antibiotics It appears she received Zosyn in the emergency roomI do not see additional antibiotics ordered now and I will confirm that she does not require another dose prior to our surgery History of Present Illness Attending Physician: Jan Beckford MD History of Present Illness 39-year-old female presented to the emergency room overnight with fever, chills, nausea, left flank pain Evaluation at that time revealed an obstructing left ureteral calculus with suspected infection Leukocytosis Tachycardia Afebrile since arrival Normotensive at present Still reports extreme discomfort and general ill feeling History of kidney stones requiring numerous interventionsall conducted through the [facility] most recent intervention was 5+ years ago Noncontributory family history Allergies Allergy/AdvReac Type Severity Reaction Status Date / Time Sulfa (Sulfonamide Allergy Severe TONGUE Verified 03/19/20 05:18 Antibiotics) SWELLING Home Medications Home Medications Medication Instructions Recorded Confirmed Type bupropion HCl [Wellbutrin SR] 150 mg PO Q12 06/17/19 03/19/20 History fluoxetine 60 mg PO DAILY 03/19/20 03/19/20 History ibuprofen 600 mg PO Q6H PRN 03/19/20 03/19/20 History oxycodone-acetaminophen [Percocet] 2 tab PO Q6H PRN #20 tab 03/19/20 03/19/20 Rx tamsulosin [Flomax] 0.4 mg PO DAILY #7 cap 03/19/20 03/19/20 Rx Patient History Medical History Left ureteral calculus (Acute) No significant past medical history Surgical History No pertinent past surgical history Social History Beliefs That Will Affect Care: None Current Living Situation: Family Other Information That Helps Us Care for You: No Feels Safe at Home: Yes Safety Concerns: Feels Safe At This Time Smoking Status: Current every day smoker Hx Substance Use: No Review of Systems Constitutional: + fever, + chills and + fatigue Eyes: no worsening vision Ear, Nose, Mouth, Throat: no facial pain and no pain with swallowing Respiratory: no cough and no dyspnea Cardiovascular: no chest pain and no palpitations Gastrointestinal: + abdominal pain and + nausea; no vomiting Genitourinary: + problem reported; no dysuria, no difficulty urinating, no urinary frequency and no hematuria Musculoskeletal: + back pain Integumentary: no rash and no urticaria Neurologic: no gait abnormality and no unsteadiness Psychiatric: no behavioral changes and no depression Endocrine: no fatigue Physical Exam Constitutional: well developed, well nourished and + ill appearing Very uncomfortable appearing Neck: neck nontender Respiratory: normal respiratory effort; no respiratory distress and does not use accessory muscles Cardiovascular: Rate/Rhythm: + tachycardic Vessels: radial pulses present Extremities: no edema Gastrointestinal (Abdomen): Inspection/Auscultation: abdomen normal to inspection Percussion/Palpation: + abdomen tender (Left flank) and abdomen soft; no guarding Musculoskeletal: Head/Neck/Chest: normocephalic and head atraumatic Extremities: extremities normal to inspection Skin: no rashes and no lesions Trauma: no evidence of skin trauma Neurologic: awake; not obtunded Speech / Cognition: normal speech Motor/Sensory: no tremor Psychiatric: Orientation: alert and oriented x 3 Lymphatic: no lymphadenopathy Results & Data Vital Signs (Past 12 Hours) Vital Signs Temp Pulse Pulse Resp BP BP Pulse Ox 03/20/20 03:58 37.6 C H 122 H 18 110/66 92 03/20/20 01:38 37.7 C H 117 H 18 125/78 94 03/20/20 01:12 121 H 18 148/78 H 93 03/20/20 00:30 120 H 24 126/81 95 03/19/20 23:30 120 H 21 124/69 95 03/19/20 22:28 114 H 18 116/60 98 03/19/20 21:56 96 03/19/20 21:42 37.2 C 120 H 12 148/87 H 98 PG Care Time/CCT Total # of Minutes Spent Total Time Spent with Patient: Total time spent is greater than 50% in coordination of care (as documented) at patient's floor/unit and/or counseling patient: Coding Level of Care Code 01952 Inpt Consult Level 4 Diagnoses Left ureteral calculus N20.1
[2020-03-20 07:54] LABS: BUN Creatinine Ratio 13.1 (10-20); Calcium 8.1 mg/dl (8.5-10.1); Creatinine Clr Calc Pharmacy 68.3 ml/min; Est GFR (African American) 57.3; Est GFR (Non-African American) 49.4; Magnesium 2.2 mg/dl (1.8-2.4); Potassium 4.3 mmol/L (3.5-5.1)
[2020-03-20] MEDS: LACTATED RINGER'S 1,000 ML IV SCH ×2 (08:27→18:23)
--- NOTE | 2020-03-20 08:47 | Anesthesiology Consultation ---
Date of Service March 20, 2020 Assessment & Plan (1) Encounter for pre-operative examination: Chart Review Chart Review: Acceptable Risk for Surgery Consults Requested none ASA ASA3 Proposed Anesthesia Anesthesia Type: MAC Risk / Benefits Reviewed With: PT / POA / Parent / Guardian, Accepts Plan and Informed Consent Obtained History Surgery Operation Date: 03/20/20 09:30 Proposed Procedures p Ureteral Stent Insertion/Removal(Left) - Eliceo Jean Baptiste MD Height/Weight Height: 5 ft 4 in Weight: 111.8 kg Allergies Allergy/AdvReac Type Severity Reaction Status Date / Time Sulfa (Sulfonamide Allergy Severe TONGUE Verified 03/19/20 05:18 Antibiotics) SWELLING Medications Home Medications Medication Instructions Recorded Confirmed Last Taken bupropion HCl [Wellbutrin SR] 150 mg PO Q12 06/17/19 03/19/20 06/17/19 fluoxetine 60 mg PO DAILY 03/19/20 03/19/20 Unknown ibuprofen 600 mg PO Q6H PRN 03/19/20 03/19/20 03/19/20 15:00 oxycodone-acetaminophen [Percocet] 2 tab PO Q6H PRN #20 tab 03/19/20 03/19/20 Unknown tamsulosin [Flomax] 0.4 mg PO DAILY #7 cap 03/19/20 03/19/20 Unknown Active Medications Generic Name Dose Route Start Last Admin Trade Name Freq PRN Reason Stop Dose Admin Hydromorphone HCl 0.5 mg 03/20/20 01:50 03/20/20 06:20 Dilaudid IV 04/03/20 01:49 0.5 mg Q3H PRN Administration Pain Cefepime HCl 2,000 mg/ Syringe 20 mls @ 5 mls/min 03/20/20 02:00 03/20/20 02:19 IV 03/30/20 01:59 5 mls/min Q12H DANIEL Administration Lactated Ringer's 1,000 mls @ 80 mls/hr 03/20/20 07:00 03/20/20 08:27 Lr IV 04/19/20 06:59 80 mls/hr .[id number] DANIEL Administration NPO Date Last Intake of Fluids: 03/20/20 Time Last Intake of Fluids: 00:00 Date Last Intake of Solids: 03/20/20 Time Last Intake of Solids: 00:00 Past Medical History Medical History Left ureteral calculus (Acute) Morbid obesity No significant past medical history Exercise / Class Metabolic Activity II 4-5 Yardwork/Stairs/Walk up hill Past Surgical History Surgical History No pertinent past surgical history Past Anesthesia History No Hx of Anesthesia Complications and No Family Hx of Anesthesia Complications History of PONV No Hx of PONV and No Hx of Motion Sickness Social History Smoking Status: Current every day smoker alcohol intake frequency: holidays/special occasions only Hx Substance Use: No Physical Exam Vital Signs Last Vital Signs Temp 100.0 F H 03/20/20 07:49 Pulse 118 H 03/20/20 07:49 Resp 18 03/20/20 07:49 BP 95/55 L 03/20/20 07:49 Pulse Ox 90 03/20/20 07:49 ENMT Mouth: no dentition abnormality Thyromental Distance: > or= 3.5 Finger Breadths Mallampati Class: III Neck normal visual inspection Respiratory normal respiratory effort Auscultation: lungs clear to auscultation bilaterally Cardiovascular Rate/Rhythm: regular rate and regular rhythm Testing Laboratory Results 03/20/20 06:44 03/20/20 06:44 PT 10.3 Seconds (9.0-12.0) 03/19/20 22:39 INR 1.0 (0.9-1.1) 03/19/20 22:39 APTT 29.9 Seconds (21.0-31.0) 03/19/20 22:39 Urine Color Yellow 03/19/20 22:00 Urine Appearance Clear (Clear) 03/19/20 22:00 Urine pH 6.0 (4.5-7.5) 03/19/20 22:00 Ur Specific [place] 1.013 (1.000-1.030) 03/19/20 22:00 Urine Protein Negative (Negative) 03/19/20 22:00 Urine Glucose (UA) Negative (Negative) 03/19/20 22:00 Urine Ketones Negative (Negative) 03/19/20 22:00 Urine Nitrite Negative (Negative) 03/19/20 22:00 Ur Leukocyte Esterase 2+ (Negative) H 03/19/20 22:00 Urine WBC (Auto) >30 /hpf (0-5) H 03/19/20 22:00 Urine RBC (Auto) 5-10 /hpf (0-4) H 03/19/20 22:00 U Hyaline Cast (Auto) 1-5 /lpf (0-5) 03/19/20 22:00 U Epithel Cells (Auto) 10-20 /lpf (0-5) H 03/19/20 22:00 Urine Bacteria (Auto) 2+ (Negative) H 03/19/20 22:00 Urine Test Negative (Negative) 03/19/20 22:00 03/19/20 22:00 Urine Test Negative Electrocardiogram Date: 03/19/20 Sinus tachycardia, rate 117 bpm Possible Left atrial enlargement Borderline ECG No previous ECGs available
[2020-03-20] MEDS ORDERED: DAPTOMYCIN CONSULT ACTIVE PRN (08:50)
[2020-03-20] MEDS ORDERED: fentaNYL citrate 100 MCG/2 ML VIAL IV PRN (09:02)
[2020-03-20] MEDS ORDERED: ATROPINE SULFATE 0.1 MG/ML 10ML SYR IV PRN (09:02)
[2020-03-20] MEDS ORDERED: ePHEDrine sulfate 50 MG/ML AMP IV PRN (09:02)
[2020-03-20] MEDS ORDERED: ONDANSETRON INJ 2 MG/ML 2 ML VIAL IV PRN (09:02)
[2020-03-20] MEDS ORDERED: CIPROFLOXACIN 400MG / 200ML D5W IV ONE (09:02)
--- NOTE | 2020-03-20 09:03 | XRay Report ---
KUB HISTORY: Acute bilateral flank pain with fever flank pain, fever, known stone COMPARISON: CT abdomen pelvis 03/19/2020 FINDINGS: The bowel gas pattern is non-obstructive. There is no organomegaly. Renal shadows are part ially obscured by bowel gas. The previously noted 7 mm calculus of the left ureter at the level of L2 is not definitively seen. No pneumoperitoneum or pneumatosis. No fracture. IMPRESSION: Renal shadows are obscured by bowel gas. The previously described left ureteral calculus is not ident ified. ACT 112: Negative or not required by law. The above report was generated using voice recognition software. It may contain grammatical, syntax o r spelling errors. Electronically signed by: Butch Melgoza M.D. 03/20/2020 9:02 AM
[2020-03-20] MEDS ORDERED: PROPOFOL IV EMULSION 10 MG/ML 20 ML VIAL IV ONE (09:09)
[2020-03-20] MEDS ORDERED: MIDAZOLAM HCL 1 MG/ML 2ML VIAL ONE (09:09)
[2020-03-20] MEDS ORDERED: LIDOCAINE HCL 2% 2 ML VIAL/AMP(20MG/ML) INFIL ONE (09:09)
[2020-03-20] MEDS ORDERED: fentaNYL citrate 100 MCG/2 ML VIAL ONE (09:10)
--- NOTE | 2020-03-20 09:15 | XRay Report ---
XR chest 1V portable CLINICAL HISTORY: SEPSIS COMPARISON STUDY: No previous studies for comparison. FINDINGS: Lung volumes are normal. Lungs are clear. There is no pneumothorax or pleural effusion. Car diac size is normal. Mediastinal contours are normal. There is no evidence for pulmonary edema. IMPRESSION: No acute cardiopulmonary findings. ACT 112: Negative or not required by law. Electronically signed by: Fidel Aj M.D. 03/20/2020 9:13 AM
--- NOTE | 2020-03-20 09:38 | Operative Report ---
PG Post Operative Report Pre & Post Diagnosis Operation Date: 03/20/20 09:30 Pre-Op Diagnosis: Left ureteral calculus Post-Op Diagnosis: Left ureteral calculus I identified the patient and participated in the time-out.: Yes Procedure Operation Date: 03/20/20 09:30 Actual Procedures p Ureteral Stent Insertion, Left(Left) - Eliceo Jean Baptiste MD Surgeon Cayden Jean Baptiste MD Regeneration Operator none Estimated Blood Loss 0 Findings Consistent with Post-Op Diagnosis Specimens none Description of Procedure The patient was identified in the preoperative holding area, appropriate informed consents were reviewed and completed and the patient was transferred to the operative suite. Upon arrival, appropriate antibiotics and anesthesia were administered and the patient was placed in dorsal lithotomy position and prepped and draped in sterile fashion. To begin the case I passed a 22 Chinese cystoscope with 30 degree lens. Of note she has a significant rectocele and slight anterior prolapse as well. After passing the scope I inspected the bladder. There was debris within the bladder and cloudy urine consistent with infection. I was able to clear this with irrigation. Inspection of the bladder wall revealed healthy-appearing mucosa without abnormality. The left ureteral orifice was subsequently cannulated with a 6 Chinese open-ended catheter and a sensor wire. The wire advanced to the kidney without difficulty. Immediately upon the wire entering the kidney we began to get discharge of purulent urine. I then placed a 6 Chinese by 24 cm double-J ureteral stent seeing continued drainage of milky/infected urine from the kidney. There was a good curl in the kidney as well as the bladder. The case was concluded and she was reversed of anesthesia and taken to the PACU in stable condition. There were no complications. I attest to the content of the Intraoperative Record and any orders documented therein. Any exceptions are noted below.
--- NOTE | 2020-03-20 09:48 | Fluoroscopy Report ---
FL retrograde includes kub HISTORY: 39 years-old Female STENT status post placement of a left ureteral stent COMPARISON: CT abdomen and pelvis 03/19/2020. TECHNIQUE: 2 spot fluoroscopic images of the abdominal left upper quadrant were obtained utilizing 2. 0 seconds fluoroscopy time FINDINGS: Left ureteral stent appears to be in satisfactory position. The distal portion of the stent is not im aged. The previously described calculus of the proximal left ureter is not identified. IMPRESSION: Fluoroscopic assistance as above. Please see procedural report for further details. ACT 112: Negative or not required by law. The above report was generated using voice recognition software. It may contain grammatical, syntax o r spelling errors. Electronically signed by: Butch Melgoza M.D. 03/20/2020 9:47 AM
--- NOTE | 2020-03-20 09:56 | Anesthesiology Progress Note ---
Date of Service March 20, 2020 Anesthesia Post Procedure Vital Signs Vital Signs: Temp Pulse Pulse Resp BP BP Pulse Ox 03/20/20 09:45 111 H 23 106/72 98 03/20/20 09:38 97.9 F 115 H 10 L 90/38 L 10 L 03/20/20 07:49 100.0 F H 118 H 18 95/55 L 90 03/20/20 07:23 132 H 03/20/20 03:58 99.7 F H 122 H 18 110/66 92 03/20/20 01:38 99.9 F H 117 H 18 125/78 94 03/20/20 01:12 121 H 18 148/78 H 93 03/20/20 00:30 120 H 24 126/81 95 03/19/20 23:30 120 H 21 124/69 95 03/19/20 22:28 114 H 18 116/60 98 03/19/20 21:56 96 03/19/20 21:42 99.0 F 120 H 12 148/87 H 98 Pain Intensity Left Flank: Pain Intensity: 0 Transfer of Care Handoff Completed per policy Notes Mental Status: alert / awake / arousable and participated in evaluation Patient Amnestic to Procedure: Yes Nausea / Vomiting: adequately controlled Pain: adequately controlled Airway Patency, RR, SpO2: stable & adequate BP & HR: stable & adequate Hydration State: stable & adequate Anesthetic Complications: no major complications apparent and Pt Satisfied with anesthetic care
[2020-03-20] MEDS: BuPROPion SR 150 MG TABCR PO SCH ×2 (10:53→20:43)
[2020-03-20] MEDS: ACETAMINOPHEN 325 MG TAB PO PRN ×2 (10:53→18:24)
[2020-03-20] MEDS: DAPTOmycin 475 MG in SYRINGE 0 ML IV SCH (10:53)
[2020-03-20] MEDS: FLUOXETINE HCL 20 MG CAP PO SCH (10:54)
[2020-03-20] MEDS: TAMSULOSIN HCL 0.4 MG CAP PO SCH (10:54)
[2020-03-20] MEDS: ENOXAPARIN INJ 40 MG/0.4 ML SYR SQ SCH (10:55)
--- NOTE | 2020-03-20 12:17 | Electrocardiogram Report ---
Test Reason : Blood Pressure : / mmHG Vent. Rate : 117 BPM Atrial Rate : 117 BPM P-R Int : 132 ms QRS Dur : 086 ms QT Int : 330 ms P-R-T Axes : 059 055 020 degrees QTc Int : 460 ms Sinus tachycardia Possible Left atrial enlargement Borderline ECG No previous ECGs available Confirmed by Kevyn Brower ([id number]) on 03/20/2020 12:17:11 PM Referred By: REFERRED SELF Confirmed By:Kevyn Brower
[2020-03-20] MEDS: OXYCODONE HCL IR 5 MG TAB (IMMEDIATE RELEASE) PO PRN ×2 (15:51→20:43)
[2020-03-20] MEDS ORDERED: SODIUM CHLORIDE 0.9% 1000ML 500 ML IV ONE (18:04)
[2020-03-20 19:09] LABS: BUN Creatinine Ratio 10.7 (10-20); Calcium 8.6 mg/dl (8.5-10.1); Creatinine Clr Calc Pharmacy 78.2 ml/min; Est GFR (African American) 67.5; Est GFR (Non-African American) 58.2; Phosphorus 1.8 mg/dl (2.5-4.9)
[2020-03-20] MEDS ORDERED: NORMOSOL-R 1,000 ML IV ONE (20:21)
[2020-03-20] MEDS ORDERED: LACTATED RINGER'S 1,000 ML IV SCH (21:30)
[2020-03-21] MEDS ORDERED: SODIUM CHLORIDE 0.9% 1000ML 1,000 ML IV ONE (00:14)
[2020-03-21] MEDS ORDERED: POTASSIUM PHOS 3 MMOL/1 ML INFUSION IV STA (00:17)
[2020-03-21] MEDS ORDERED: POTASSIUM PHOSPHATE 40 MMOL in SODIUM CHLORIDE 0.9% 1000ML 1,000 ML IV ONE (00:30)
[2020-03-21] MEDS ORDERED: LACTATED RINGER'S 1,000 ML IV SCH (01:00)
[2020-03-21] MEDS: OXYCODONE HCL IR 5 MG TAB (IMMEDIATE RELEASE) PO PRN ×4 (01:29→19:50)
[2020-03-21] MEDS: CEFEPIME 2,000 MG in SYRINGE 7.5 ML IV SCH (01:31)
[2020-03-21] MEDS ORDERED: ACETAMINOPHEN 325 MG TAB PO STA (03:36)
[2020-03-21 05:52] LABS: Hematocrit (blood only) 35.2 % (37-47); Hemoglobin 11.2 g/dL (12.0-16.0); Mean Corpuscular Hemoglobin 29.4 pg (25-34); Mean Corpuscular Hgb Conc 31.8 g/dL (32-36); Mean Corpuscular Volume 92.4 fL (80-100); Mean Platelet Volume 9.4 fL (7.4-10.4); Platelet Count 225 K/uL (130-400); RDW Coefficient of Variation 14.7 % (11.5-14.5); Red Blood Count 3.81 M/uL (4.2-5.4); White Blood Count 16.59 K/uL (4.8-10.8)
[2020-03-21 06:23] LABS: BUN Creatinine Ratio 10.9 (10-20); Creatinine Clr Calc Pharmacy 107.1 ml/min; Est GFR (African American) 96.6; Est GFR (Non-African American) 83.3; Magnesium 2.1 mg/dl (1.8-2.4); Potassium 4.1 mmol/L (3.5-5.1)
[2020-03-21 06:35] LABS: Phosphorus 2.6 mg/dl (2.5-4.9); Thyroid Stimulating Hormone 1.52 uIu/ml (0.300-4.500)
[2020-03-21] MEDS ORDERED: LACTATED RINGER'S 1,000 ML IV ONE (07:33)
[2020-03-21] MEDS: DAPTOmycin 475 MG in SYRINGE 0 ML IV SCH (09:14)
[2020-03-21] MEDS: BuPROPion SR 150 MG TABCR PO SCH ×2 (09:15→19:52)
[2020-03-21] MEDS: FLUOXETINE HCL 20 MG CAP PO SCH (09:15)
[2020-03-21] MEDS: TAMSULOSIN HCL 0.4 MG CAP PO SCH (09:15)
[2020-03-21] MEDS: ENOXAPARIN INJ 40 MG/0.4 ML SYR SQ SCH (09:18)
[2020-03-21] MEDS: cefTRIAXone SODIUM 2,000 MG in DEXTROSE 5% 50 ML IV SCH (11:00)
[2020-03-21] MEDS: ACETAMINOPHEN 325 MG TAB PO PRN ×2 (11:02→18:35)
--- NOTE | 2020-03-21 12:26 | Hospitalist Progress Note ---
Date of Service March 21, 2020 Assessment & Plan (1) Severe sepsis: Gram-negative bacteremia SIRS plus ARF secondary to complicated UTI, obstructive uropathy obstructive uropathy secondary to recurrent urolithiasis Initially treated with cefepime, daptomycin -Urine culture is now available, positive for E. coli, sensitive to Rocephin, but only intermediate to cefepime, will stop cefepime and switch to Rocephin now (03/21/20) -Continue Flomax -Urology consulted, patient is status post left ureteral stent placement (03/20/20) with Dr. Jean Baptiste, discharge and purulent urine noted during procedure -Patient continues to be febrile and tachycardic -Continue IV fluids and antibiotic -Monitor creatinine response to IVF, Cr now improved to 0.9, down from 1.3 Situational hypertension mood disorder, at baseline Ongoing tobacco abuse, Nicotine patch DVT prophylaxis. Lovenox subcu Full code Admission and Anticipated Discharge Date Admission Date: March 20, 2020 Subjective Patient underwent procedure with urology yesterday morning, left ureteral stent was inserted, patient continues to be febrile, tachycardic. It was noted there was drainage of pus during urology procedure, and patient has been on IV fluids, cefepime and daptomycin. Today cultures and sensitivities available, and cefepime will be changed to Rocephin for better coverage. Patient feels weak, has chills, but denies any chest pain or shortness of breath or abdominal pain. She has some left flank pain, and nausea. Review of Systems Constitutional: + fever, + chills and + weakness Respiratory: no cough and no dyspnea Cardiovascular: no chest pain and no palpitations Gastrointestinal: no abdominal pain, no nausea and no vomiting Physical Exam Physical Exam: GENERAL: Young obese female lying in bed, appears uncomfortable HEENT: normocephalic, atraumatic, EOMI, PERRL NECK : Supple, short neck, no tenderness CHEST : CTAB, no wheezing, rhonchi or crackles HEART : Tachycardic, no obvious murmurs ABDOMEN: Positive bowel sounds, soft, obese, some distention, left flank tenderness EXTREMITIES : Minimal LE swelling, no LE tenderness, moves extremities spontaneously SKIN: Normal color, warm NEUROLOGIC : Alert and oriented x3, no facial asymmetry, speech fluent, moves extremities spontaneously Results & Data Results & Data ([facility]) Vital Signs (Past 12 Hours) Vital Signs Temp Pulse Pulse Resp BP Pulse Ox 03/21/20 11:36 38.5 C H 109 H 145/85 H 93 03/21/20 07:27 36.8 C 98 H 20 112/73 90 03/21/20 07:00 100 H 03/21/20 06:09 37.3 C 03/21/20 03:25 37.9 C H 116 H 19 121/72 93 Laboratory Results 03/21/20 03/21/20 03/20/20 Range/Units 05:39 05:39 18:22 WBC 16.59 H (4.8-10.8) K/uL RBC 3.81 L (4.2-5.4) M/uL Hgb 11.2 L (12.0-16.0) g/dL Hct 35.2 L (37-47) % MCV 92.4 (80-100) fL MCH 29.4 (25-34) pg MCHC 31.8 L (32-36) g/dL RDW Std Deviation 50.0 H (36.4-46.3) fL RDW Coeff of Aniket 14.7 H (11.5-14.5) % Plt Count 225 (130-400) K/uL MPV 9.4 (7.4-10.4) fL Sodium 137 136 (136-145) mmol/L Potassium 4.1 4.0 (3.5-5.1) mmol/L Chloride 110 H 106 (98-107) mmol/L Carbon Dioxide 22 20 L (21-32) mmol/L Anion Gap 5.0 10.0 (3-11) BUN 10 13 (7-18) mg/dl Creatinine 0.87 D 1.17 (0.6-1.2) mg/dl Est Cr Clr Drug Dosing 107.1 78.2 ml/min Est GFR ( Amer) 96.6 67.5 Est GFR (Non-Af Amer) 83.3 58.2 BUN/Creatinine Ratio 10.9 10.7 (10-20) Glucose 110 H 140 H (70-99) mg/dl Calcium 8.0 L 8.6 (8.5-10.1) mg/dl Phosphorus 2.6 1.8 L (2.5-4.9) mg/dl Magnesium 2.1 2.0 (1.8-2.4) mg/dl TSH 1.520 (0.300-4.500) uIu/ml Medications Administered Current Inpatient Medications Acetaminophen (Tylenol) 650 mg PO Q4H PRN PRN Reason: Pain or Fever Stop: 04/19/20 01:49 Last Admin: 03/21/20 11:02 Dose: 650 mg Documented by: Bupropion HCl (Wellbutrin-Sr) 150 mg PO Q12 DANIEL Stop: 04/19/20 08:59 Last Admin: 03/21/20 09:15 Dose: 150 mg Documented by: Enoxaparin Sodium (Lovenox) 40 mg SQ QAM DANIEL Stop: 04/19/20 08:59 Last Admin: 03/21/20 09:18 Dose: 40 mg Documented by: Fluoxetine HCl (Prozac) 60 mg PO DAILY DANIEL Stop: 04/19/20 08:59 Last Admin: 03/21/20 09:15 Dose: 60 mg Documented by: Hydromorphone HCl (Dilaudid) 0.5 mg IV Q3H PRN PRN Reason: Pain Stop: 04/03/20 01:49 Last Admin: 03/20/20 06:20 Dose: 0.5 mg Documented by: Promethazine HCl 12.5 mg/ (Sodium Chloride) 50.5 mls @ 202 mls/hr IV Q6H PRN PRN Reason: Nausea And Vomiting Stop: 04/19/20 01:49 Daptomycin 475 mg/ Syringe 9.5 mls @ 4.75 mls/min IV Q24H [facility]; Protocol Stop: 03/30/20 08:59 Last Admin: 03/21/20 09:14 Dose: 4.75 mls/min Documented by: Lactated Ringer's (Lr) 1,000 mls @ 100 mls/hr IV .Q10H ONE Stop: 03/21/20 17:32 Last Admin: 03/21/20 09:15 Dose: 100 mls/hr Documented by: Ceftriaxone Sodium 2,000 mg/ (Dextrose) 70 mls @ 140 mls/hr IV Q24H [facility]; Protocol Stop: 03/31/20 10:59 Last Infusion: 03/21/20 11:31 Dose: Infused Documented by: Miscellaneous (Remove Nicoderm Patch) 1 ea N/A DAILY@0859 [facility] Stop: 04/19/20 08:58 Last Admin: 03/21/20 09:15 Dose: Not Given Documented by: Miscellaneous Information (Consult) 1 ea N/A UD PRN PRN Reason: Consult Stop: 04/19/20 08:49 Nicotine (Nicoderm Cq) 21 mg TD QAM PRN PRN Reason: smoking urge Stop: 04/19/20 00:24 Last Admin: 03/21/20 11:00 Dose: 21 mg Documented by: Oxycodone HCl (Roxicodone Immediate Rel) 5 - 10 mg PO Q4H PRN PRN Reason: Pain Stop: 04/03/20 01:49 Last Admin: 03/21/20 11:00 Dose: 10 mg Documented by: Tamsulosin HCl (Flomax) 0.4 mg PO QAM [facility] Stop: 04/19/20 08:59 Last Admin: 03/21/20 09:15 Dose: 0.4 mg Documented by:
--- NOTE | 2020-03-21 13:42 | Urology Progress Note ---
Date of Service March 21, 2020 Assessment & Plan (1) Left ureteral calculus: 39-year-old female with suspected sepsis secondary to a urinary tract infection and obstructing left ureteral calculus POD1 sp stent Continue supportive care with aggressive IV hydration and antibiotics Agree with continuing broad spectrum until cultures bck Can likely go home on oral meds for likely 10-14 days with plan for further intervention. Continue to monitor. Call if any changes or issues. Subjective Postop from stent placement for obstruction issues. Patient has been tolerating well. Has noticed some frequency and urgency. Has not had severe pain in the back and flank. Does have occasional burning and irritation. No severe episodes or major changes. No new nausea or vomiting. Had tolerated anesthesia without major problems Continues to feel weak and ill and slowly improving. Review of Systems Review of Systems: All systems reviewed & are unremarkable except as noted in HPI & below Physical Exam Physical Exam: General: Alert in no acute distress. HEENT: Normocephalic Atraumatic. Inspection normal. Cranial Nerves 2-12 Grossly intact. Normal inspection of face. Normal inspection of neck. Psychologic: Normal affect. Respiratory: Nonlabored. No use of accessory muscles. No tachypnea or dyspnea. Cardiovascular: No tachycardia Skin: [place] and Dry. No rashes or visible lesions. Extremities/Lymphatics: No edema Abdomen: Soft Non-distended. No rebound or guarding. Obese Results & Data Vital Signs (Past 12 Hours) Vital Signs Temp Pulse Pulse Resp BP Pulse Ox 03/21/20 11:36 38.5 C H 109 H 145/85 H 93 03/21/20 07:27 36.8 C 98 H 20 112/73 90 03/21/20 07:00 100 H 03/21/20 06:09 37.3 C 03/21/20 03:25 37.9 C H 116 H 19 121/72 93 PG Care Time/CCT Total # of Minutes Spent Total Time Spent with Patient: Total time spent is greater than 50% in coordination of care (as documented) at patient's floor/unit and/or counseling patient: Coding Level of Care Code 97812 Subseq Hosp Care Lvl 3 Diagnoses Left ureteral calculus N20.1
[2020-03-22] MEDS: OXYCODONE HCL IR 5 MG TAB (IMMEDIATE RELEASE) PO PRN ×2 (01:25→15:46)
[2020-03-22 07:17] LABS: Hematocrit (blood only) 36.7 % (37-47); Hemoglobin 11.8 g/dL (12.0-16.0); Mean Corpuscular Hemoglobin 29.9 pg (25-34); Mean Corpuscular Hgb Conc 32.2 g/dL (32-36); Mean Corpuscular Volume 92.9 fL (80-100); Mean Platelet Volume 9.7 fL (7.4-10.4); Platelet Count 233 K/uL (130-400); RDW Coefficient of Variation 14.5 % (11.5-14.5); RDW Standard Deviation 49.8 fL (36.4-46.3); Red Blood Count 3.95 M/uL (4.2-5.4); White Blood Count 10.01 K/uL (4.8-10.8)
[2020-03-22 07:45] LABS: BUN Creatinine Ratio 9.4 (10-20); Calcium 8.3 mg/dl (8.5-10.1); Creatinine Clr Calc Pharmacy 124.6 ml/min; Est GFR (African American) 115.6; Est GFR (Non-African American) 99.7; Phosphorus 2.1 mg/dl (2.5-4.9); Potassium 3.9 mmol/L (3.5-5.1)
--- NOTE | 2020-03-22 08:23 | Hospitalist Progress Note ---
Date of Service March 22, 2020 Assessment & Plan (1) Severe sepsis: Gram-negative bacteremia SIRS plus ARF secondary to complicated UTI, obstructive uropathy obstructive uropathy secondary to recurrent urolithiasis Initially treated with cefepime, daptomycin -Urine culture is now available, positive for E. coli, sensitive to Rocephin, but only intermediate to cefepime, stopped cefepime and switched to Rocephin (03/21/20) -Continue Flomax -Urology consulted, patient is status post emergent left ureteral stent placement (03/20/20) with Dr. Jean Baptiste, discharge and purulent urine noted during procedure -Patient continues to be febrile and tachycardic -Continue IV fluids and antibiotic -Monitor creatinine response to IVF, Cr now improved to 0.8, down from 1.3 Situational hypertension mood disorder, at baseline Ongoing tobacco abuse, Nicotine patch DVT prophylaxis. Lovenox subcu Full code Admission and Anticipated Discharge Date Admission Date: March 20, 2020 Subjective Patient continues to be febrile and tachycardic. White blood cell count normalized. Switched cefepime to ceftriaxone yesterday, given culture and sensitivities. Currently laying in bed, and feels much better than yesterday. Continues to have chills and left groin pain. Says that she has good urine output. Denies any chest pain or shortness of breath. Says she had some shortness of breath yesterday. Review of Systems Review of Systems: All systems reviewed & are unremarkable except as noted in HPI & below Constitutional: + fever, + chills and + weakness Respiratory: no cough and no dyspnea Cardiovascular: no chest pain and no palpitations Gastrointestinal: no abdominal pain, no nausea and no vomiting + Poor appetite Physical Exam Physical Exam: GENERAL: Young obese female lying in bed, appears uncomfortable but improved from previous exam HEENT: normocephalic, atraumatic, EOMI, PERRL NECK : Supple, short neck, no tenderness CHEST : CTAB, no wheezing, rhonchi, + b/l crackles HEART : Tachycardic HR 96, no obvious murmurs ABDOMEN: Positive bowel sounds, soft, obese, some distention, left flank and groin tenderness EXTREMITIES : Minimal LE swelling, no LE tenderness, moves extremities spontaneously SKIN: Normal color, warm NEUROLOGIC : Alert and oriented x3, no facial asymmetry, speech fluent, moves extremities spontaneously Results & Data Results & Data ([facility]) Vital Signs (Past 12 Hours) Vital Signs Temp Pulse Pulse Resp BP BP Pulse Ox 03/22/20 08:10 37.8 C H 96 H 20 145/89 H 90 03/22/20 07:40 93 H 03/22/20 04:32 37.6 C H 92 H 20 107/67 91 03/21/20 23:25 37.5 C 93 H 18 109/67 90 03/21/20 23:00 99 H Laboratory Results 03/22/20 03/22/20 Range/Units 06:47 06:47 WBC 10.01 (4.8-10.8) K/uL RBC 3.95 L (4.2-5.4) M/uL Hgb 11.8 L (12.0-16.0) g/dL Hct 36.7 L (37-47) % MCV 92.9 (80-100) fL MCH 29.9 (25-34) pg MCHC 32.2 (32-36) g/dL RDW Std Deviation 49.8 H (36.4-46.3) fL RDW Coeff of Aniket 14.5 (11.5-14.5) % Plt Count 233 (130-400) K/uL MPV 9.7 (7.4-10.4) fL Sodium 137 (136-145) mmol/L Potassium 3.9 (3.5-5.1) mmol/L Chloride 107 (98-107) mmol/L Carbon Dioxide 22 (21-32) mmol/L Anion Gap 8.0 (3-11) BUN 7 (7-18) mg/dl Creatinine 0.75 (0.6-1.2) mg/dl Est Cr Clr Drug Dosing 124.6 ml/min Est GFR ( Amer) 115.6 Est GFR (Non-Af Amer) 99.7 BUN/Creatinine Ratio 9.4 L (10-20) Glucose 93 (70-99) mg/dl Calcium 8.3 L (8.5-10.1) mg/dl Phosphorus 2.1 L (2.5-4.9) mg/dl Magnesium 2.0 (1.8-2.4) mg/dl Medications Administered Current Inpatient Medications Acetaminophen (Tylenol) 650 mg PO Q4H PRN PRN Reason: Pain or Fever Stop: 04/19/20 01:49 Last Admin: 03/21/20 18:35 Dose: 650 mg Documented by: Bupropion HCl (Wellbutrin-Sr) 150 mg PO Q12 DANIEL Stop: 04/19/20 08:59 Last Admin: 03/21/20 19:52 Dose: 150 mg Documented by: Enoxaparin Sodium (Lovenox) 40 mg SQ QAM DANIEL Stop: 04/19/20 08:59 Last Admin: 03/21/20 09:18 Dose: 40 mg Documented by: Fluoxetine HCl (Prozac) 60 mg PO DAILY [facility] Stop: 04/19/20 08:59 Last Admin: 03/21/20 09:15 Dose: 60 mg Documented by: Hydromorphone HCl (Dilaudid) 0.5 mg IV Q3H PRN PRN Reason: Pain Stop: 04/03/20 01:49 Last Admin: 03/20/20 06:20 Dose: 0.5 mg Documented by: Promethazine HCl 12.5 mg/ (Sodium Chloride) 50.5 mls @ 202 mls/hr IV Q6H PRN PRN Reason: Nausea And Vomiting Stop: 04/19/20 01:49 Daptomycin 475 mg/ Syringe 9.5 mls @ 4.75 mls/min IV Q24H [facility]; Protocol Stop: 03/30/20 08:59 Last Admin: 03/21/20 09:14 Dose: 4.75 mls/min Documented by: Ceftriaxone Sodium 2,000 mg/ (Dextrose) 70 mls @ 140 mls/hr IV Q24H [facility]; Protocol Stop: 03/31/20 10:59 Last Infusion: 03/21/20 11:31 Dose: Infused Documented by: Miscellaneous (Remove Nicoderm Patch) 1 ea N/A DAILY@0859 [facility] Stop: 04/19/20 08:58 Last Admin: 03/21/20 09:15 Dose: Not Given Documented by: Miscellaneous Information (Consult) 1 ea N/A UD PRN PRN Reason: Consult Stop: 04/19/20 08:49 Nicotine (Nicoderm Cq) 21 mg TD QAM PRN PRN Reason: smoking urge Stop: 04/19/20 00:24 Last Admin: 03/21/20 11:00 Dose: 21 mg Documented by: Oxycodone HCl (Roxicodone Immediate Rel) 5 - 10 mg PO Q4H PRN PRN Reason: Pain Stop: 04/03/20 01:49 Last Admin: 03/22/20 01:25 Dose: 10 mg Documented by: Tamsulosin HCl (Flomax) [facility] Stop: 04/19/20 08:59 Last Admin: 03/21/20 09:15 Dose: 0.4 mg Documented by:
[2020-03-22] MEDS ORDERED: SODIUM PHOSPHATE 3 MMOL/1 ML INFUSION IV STA (08:24)
[2020-03-22] MEDS ORDERED: SODIUM PHOSPHATE 12 MMOL in SODIUM CHLORIDE 0.9% 250 ML IV ONE (08:30)
[2020-03-22] MEDS: ACETAMINOPHEN 325 MG TAB PO PRN ×2 (08:40→21:30)
[2020-03-22] MEDS: BuPROPion SR 150 MG TABCR PO SCH ×2 (08:41→21:22)
[2020-03-22] MEDS: FLUOXETINE HCL 20 MG CAP PO SCH (08:41)
[2020-03-22] MEDS: TAMSULOSIN HCL 0.4 MG CAP PO SCH (08:41)
[2020-03-22] MEDS: ENOXAPARIN INJ 40 MG/0.4 ML SYR SQ SCH (08:42)
[2020-03-22] MEDS: DAPTOmycin 475 MG in SYRINGE 0 ML IV SCH (08:42)
[2020-03-22] MEDS: cefTRIAXone SODIUM 2,000 MG in DEXTROSE 5% 50 ML IV SCH (12:23)
--- NOTE | 2020-03-22 13:25 | Urology Progress Note ---
Date of Service March 22, 2020 Assessment & Plan (1) Left ureteral calculus: Status post emergent left ureteral stent placement secondary to obstructed left collecting system and infection Her culture is showing E. coli sensitive to the majority of oral antibiotics Seems reasonable to transition her to oral pills and allow for discharge home given hemodynamic stability We will arrange outpatient follow-up Subjective Status post emergent ureteral stent placement over the weekend She is doing much better Feeling well Anxious to go home Review of Systems Review of Systems: All systems reviewed & are unremarkable except as noted in HPI & below Physical Exam Constitutional: well developed and well nourished Respiratory: no respiratory distress Cardiovascular: Extremities: no pedal edema Gastrointestinal (Abdomen): Inspection/Auscultation: abdomen normal to inspection Results & Data Vital Signs (Past 12 Hours) Vital Signs Temp Pulse Pulse Resp BP BP Pulse Ox 03/22/20 11:46 36.7 C 85 20 144/85 H 92 03/22/20 08:10 37.8 C H 96 H 20 145/89 H 90 03/22/20 07:40 93 H 03/22/20 04:32 37.6 C H 92 H 20 107/67 91 PG Care Time/CCT Total # of Minutes Spent Total Time Spent with Patient: Total time spent is greater than 50% in coordination of care (as documented) at patient's floor/unit and/or counseling patient: Coding Level of Care Code 49687 Subseq Hosp Care Lvl 2 Diagnoses Left ureteral calculus N20.1
[2020-03-23 06:00] LABS: Hematocrit (blood only) 35.6 % (37-47); Hemoglobin 11.7 g/dL (12.0-16.0); Mean Corpuscular Hemoglobin 29.9 pg (25-34); Mean Corpuscular Hgb Conc 32.9 g/dL (32-36); Mean Platelet Volume 9.2 fL (7.4-10.4); Platelet Count 277 K/uL (130-400); RDW Coefficient of Variation 14.4 % (11.5-14.5); RDW Standard Deviation 48.2 fL (36.4-46.3); Red Blood Count 3.91 M/uL (4.2-5.4); White Blood Count 10.18 K/uL (4.8-10.8)
[2020-03-23 06:28] LABS: BUN Creatinine Ratio 9.1 (10-20); Calcium 8.6 mg/dl (8.5-10.1); Creatinine Clr Calc Pharmacy 126.3 ml/min; Est GFR (African American) 117.5; Est GFR (Non-African American) 101.3; Potassium 3.7 mmol/L (3.5-5.1)
[2020-03-23] MEDS: ENOXAPARIN INJ 40 MG/0.4 ML SYR SQ SCH (08:34)
[2020-03-23] MEDS: BuPROPion SR 150 MG TABCR PO SCH (08:35)
[2020-03-23] MEDS: FLUOXETINE HCL 20 MG CAP PO SCH (08:35)
[2020-03-23] MEDS: TAMSULOSIN HCL 0.4 MG CAP PO SCH (08:35)
[2020-03-23] MEDS: cefTRIAXone SODIUM 2,000 MG in DEXTROSE 5% 50 ML IV SCH (11:22)
--- NOTE | 2020-03-23 14:49 | Hospitalist Progress Note ---
Date of Service March 23, 2020 Assessment & Plan (1) Severe sepsis: Left ureteral calculus and Status post emergent left ureteral stent placement secondary to obstructed left collecting system and infection Severe sepsis with E.coli Bacteremia -obstructive uropathy secondary to recurrent urolithiasis -Initially treated with cefepime, daptomycin, then switched to Rocephin (03/21/20) based on culture sensitivities -s/p Ureteral Stent Insertion, Left by Dr. Eliceo Jean Baptiste on 03/20/2020 -primary care doctor appointment 03/28/2020 11:20 AM Provider Lai Kathleen MD Department [facility] -Follow with [facility] urology appointment on 04/04/2020 at 1:40 PM with Ileana Moreira ([facility], Address: [address] [place] [address], [place] [address] ) -because patient has E.coli bacteremia with first negative blood culture on 03/20/2020, would recommend a total course of 14 day antibiotic from the first negative blood culture. Patient receive IV antibiotics in the hospital (last dose as IV ceftriaxone on 03/23/2020) and should start ciprofloxacin 500 mg twice a day starting on 03/24/2020 with last day as 04/03/2020 -medications of ciprofloxacin, acetaminophen, tamsulosin to help with urination, nicotine patch to quit tobacco products are sent electronically to [facility] [address] [place] [address] Tobacco abuse -Nicotine patch Admission and Anticipated Discharge Date Admission Date: March 20, 2020 Subjective flank pain resolving. no fever today and patient wishes to go home. no vomiting. no dizziness. no headache. no dizziness. no lightheadedness. no chest pain. no palpitations. Review of Systems Review of Systems: All systems reviewed & are unremarkable except as noted in Subjective Physical Exam Constitutional: comfortable Eyes: PERRL, conjunctivae normal, anicteric sclerae EOM intact bilaterally ENMT: external ear and nose normal, oropharynx normal Neck: trachea midline, no thyromegaly normal visual inspection Respiratory: normal respiratory effort, lungs clear to auscultation Cardiovascular: Rate/Rhythm: regular rate Gastrointestinal (Abdomen): normal bowel sounds, soft, nontender, no hepatosplenomegaly Musculoskeletal: Head/Neck/Chest: normocephalic and head atraumatic Neurologic: PERRL, EOMI, accommodation nl, no face palsy, no dysarthria CN's II-XI intact bilaterally Psychiatric: A+Ox3, euthymic affect Results & Data Results & Data ([facility]) Vital Signs (Past 12 Hours) Vital Signs Temp Pulse Pulse Pulse Resp BP BP 03/23/20 14:26 90 20 134/79 03/23/20 14:04 36.7 C 133 H 89 18 120/68 144/85 H 03/23/20 08:00 36.7 C 89 18 120/68 03/23/20 07:09 89 03/23/20 03:59 37.3 C 97 H 20 125/77 Pulse Ox 03/23/20 14:26 94 03/23/20 14:04 92 03/23/20 08:00 92 03/23/20 07:09 03/23/20 03:59 91
--- NOTE | 2020-03-23 14:53 | Discharge Summary ---
Date of Service March 23, 2020 Admission HPI Per Admitting Provider History obtained from patient and records. Medical history is significant for urolithiasis, mood disorder, PCOS as per records, tobacco abuse. Last confinement 2012 for complicated UTI secondary to obstructive uropathy from left kidney stone. Patient underwent cystoscopy/stent placement. 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 No fever, no chills, no hematuria. CT abdomen pelvis yesterday morning showed : 1. Moderate left-sided hydroureteronephrosis secondary to an obstructing 6 x 4 x 8 mm calculus of the proximal left ureter just distal to the ureteropelvic junction at the level of L2. 2. Nonobstructing right nephrolithiasis. 3. No bowel obstruction or bowel wall thickening. Patient discharged home with Flomax and Percocet prescriptions, in early hope of being able to pass stone at home. At home, left flank pain noted to be worsening unrelieved by pain medication. Low-grade fever at home. No chest pain, no S OB. At baseline, patient received Zosyn for sepsis. MEDICAL HISTORY: As above. SURGICAL HISTORY: 1. Tubal ligation. 2. Lithotripsy. FAMILY HISTORY: Kidney stones, diabetes. PERSONAL SOCIAL HISTORY: 1 pack daily, no chronic intake of alcoholic beverages. 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 Principal Diagnosis Left ureteral calculus and Status post emergent left ureteral stent placement secondary to obstructed left collecting system and infection Severe sepsis with E.coli Bacteremia Discharge Exam Constitutional comfortable Eyes PERRL, conjunctivae normal, anicteric sclerae EOM intact bilaterally ENMT external ear and nose normal, oropharynx normal Neck trachea midline, no thyromegaly normal visual inspection Respiratory normal respiratory effort, lungs clear to auscultation Cardiovascular Rate/Rhythm: regular rate Gastrointestinal (Abdomen) normal bowel sounds, soft, nontender, no hepatosplenomegaly Musculoskeletal Head/Neck/Chest: normocephalic and head atraumatic Neurologic PERRL, EOMI, accommodation nl, no face palsy, no dysarthria CN's II-XI intact bilaterally Psychiatric A+Ox3, euthymic affect Discharge Data Allergies Allergy/AdvReac Type Severity Reaction Status Date / Time Sulfa (Sulfonamide Allergy Severe TONGUE Verified 03/19/20 05:18 Antibiotics) SWELLING Consultations 07/04/20 23:01 ED Decision to Admit Stat 03/20/20 01:50 Consult Urology Routine Procedures Performed Operation Date: 03/20/20 09:30 Actual Procedures p Ureteral Stent Insertion, Left(Left) - Eliceo Jean Baptiste MD Ordered Studies 03/20/20 [place] retrograde includes kub Routine Hospital Course (1) Severe sepsis: Left ureteral calculus and Status post emergent left ureteral stent placement secondary to obstructed left collecting system and infection Severe sepsis with E.coli Bacteremia -obstructive uropathy secondary to recurrent urolithiasis -Initially treated with cefepime, daptomycin, then switched to Rocephin (03/21/20) based on culture sensitivities -s/p Ureteral Stent Insertion, Left by Dr. Eliceo Jean Baptiste on 03/20/2020 -primary care doctor appointment 03/28/2020 11:20 AM Provider Lai Kathleen MD [facility] -Follow with [facility] urology appointment on 04/04/2020 at 1:40 PM with Ileana Moreira ([facility], Address: [address] [place] [address], [place] [address] ) -because patient has E.coli bacteremia with first negative blood culture on , would recommend a total course of 14 day antibiotic from the first negative blood culture. Patient receive IV antibiotics in the hospital (last dose as IV ceftriaxone on 03/23/2020) and should start ciprofloxacin 500 mg twice a day starting on 03/24/2020 with last day as 04/03/2020 -medications of ciprofloxacin, acetaminophen, tamsulosin to help with urination, nicotine patch to quit tobacco products are sent electronically to [facility] [address] [place] [address] Tobacco abuse -Nicotine patch Total Time Total Time Spent Total Time Spent (In Minutes): 40 minutes Total Time Includes: Examination of the Patient, Discharge Planning, Medication Reconciliation and Communication With Other Providers Discharge Plan Discharge Items Patient Disposition: Home - Self-Care Reason For Visit: SEPSIS Discharge Diagnosis: Left ureteral calculus and Status post emergent left ureteral stent placement secondary to obstructed left collecting system and infection Severe sepsis with E.coli Bacteremia Condition on Discharge: Fair Activity: Resume your previous activity Non-emergency contact: Primary Care Provider and Urologist Call non-emergency contact if: you have any medication questions Follow-up/Referrals: Ileana Moreira CRNP [Nurse Practitioner] - 04/04/20 1:40 pm Lai Kathleen MD [Primary Care Provider] - 03/28/20 11:20 am (03/28/2020 11:20 AM Provider Lai Kathleen MD Department [facility] ) Diet: Regular Addtl Attending Provider Instructions: primary care doctor appointment 03/28/2020 11:20 AM Provider Lai Kathleen MD Department [facility] Follow with [facility] urology appointment on 04/04/2020 at 1:40 PM with Ileana Moreira ([facility], Address: [address] [place] [address], [place] [id number] ) because patient has E.coli bacteremia with first negative blood culture on 03/20/2020, would recommend a total course of 14 day antibiotic from the first negative blood culture. Patient receive IV antibiotics in the hospital (last dose as IV ceftriaxone on 03/23/2020) and should start ciprofloxacin 500 mg twice a day starting on 03/24/2020 with last day as 04/03/2020 medications of ciprofloxacin, acetaminophen, tamsulosin to help with urination, nicotine patch to quit tobacco products are sent electronically to [facility] [address] [place] [address], [place] [address] Pending Studies at Discharge: No Stand-Alone Forms: [facility], Smoking Cessation Medications and DC Order Prescriptions: New acetaminophen 325 mg Tablet 325 mg PO Q6H PRN (Reason: pain or fever) 5 Days Qty: 20 RF: 0 tamsulosin 0.4 mg Capsule 0.4 mg PO QAM 10 Days Qty: 10 RF: 0 nicotine [Nicoderm CQ] 21 mg/24 hr Patch 24 Hour 21 mg transdermal QAM 30 Days Qty: 30 RF: 0 ciprofloxacin HCl 500 mg Tablet 500 mg PO BID 11 Days Qty: 22 RF: 0 Continued bupropion HCl [Wellbutrin SR] 150 mg Tablet Sustained-Release 12 Hr 150 mg PO Q12 RF: 0 fluoxetine 60 mg Tablet 60 mg PO DAILY RF: 0 oxycodone-acetaminophen [Percocet] 5-325 mg tablet 2 tab PO Q6H PRN (Reason: pain) Qty: 20 RF: 0 tamsulosin [Flomax] 0.4 mg capsule 0.4 mg PO DAILY Qty: 7 RF: 0 ibuprofen 200 mg Tablet 600 mg PO Q6H PRN (Reason: Pain) RF: 0 Discharge Orders: Discharge Order (Routine); Ordered 03/23/20 Ordered By: Homero Gómez Admission Data Admit Date/Time: 03/20/20 00:28 Attending Provider: Homero Gómez Admit Provider: Faustino Ortega Primary Care Provider: Lai Kathleen Other Providers: Jadiel Shaver ; Raymond Villeda ; Chucky Shepard I. ; Eliceo Jean Baptiste ; Jodi Leblanc ; Dione Karimi ; Ayush Tovar ; Daisha Mojica ; Ileana Moreira ; Geovanny Santana ; Madelin Ríos ; Faustino Ortega Other Interventions: Discharge Summary Assessment (RN) Last Done: 03/23/20 14:04
[2020-03-24] MEDS ORDERED: CIPROFLOXACIN 500 MG TAB PO SCH ×2 (09:00→21:00)
== END 2020-03-23 15:50 | disposition home or self-care (01) | DRG 854 ==
LOC: ED 21:39 → SUATTDRO 03-20 00:28 → 2N 03-20 00:28

== ENCOUNTER 2021-11-04 03:49 | Inpatient (IN) ==
[2021-11-04] MEDS ORDERED: cefTRIAXone SODIUM 2,000 MG/70 ML BAG IV STA (04:10)
[2021-11-04] MEDS ORDERED: ACETAMINOPHEN 1,000 MG/100 ML VIAL IV STA (04:10)
[2021-11-04] MEDS ORDERED: ONDANSETRON INJ 2 MG/ML 2 ML VIAL IV STA ×2 (04:10→08:00)
[2021-11-04] MEDS ORDERED: MoRPHine SULFATE 4 MG/ML 1 ML CARP\\VIAL IV STA ×2 (04:10→05:15)
[2021-11-04] MEDS ORDERED: SODIUM CHLORIDE 0.9% 1000ML 1,000 ML IV SCH (04:15)
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
[2021-11-04 04:52] LABS: Basophils # (auto) 0.04 K/uL (0-0.2); Basophils % (auto) 0.3 %; Immature Granulocytes # (auto) 0.05 K/uL (0.00-0.02); Immature Granulocytes % (auto) 0.3 %; Lymphocytes # (auto) 0.74 K/uL (1.2-3.4); Mean Corpuscular Hemoglobin 30.9 pg (25-34); Mean Corpuscular Hgb Conc 33.3 g/dL (32-36); Mean Corpuscular Volume 92.6 fL (80-100); Mean Platelet Volume 9.5 fL (7.4-10.4); Monocytes # (auto) 0.71 K/uL (0.11-0.59); Monocytes % (auto) 4.8 %; Neutrophils # (auto) 13.01 K/uL (1.4-6.5); Neutrophils % (auto) 87.6 %; Platelet Count 283 K/uL (130-400); RDW Coefficient of Variation 13.5 % (11.5-14.5); RDW Standard Deviation 45.7 fL (36.4-46.3); Red Blood Count 4.86 M/uL (4.2-5.4); White Blood Count 14.85 K/uL (4.8-10.8)
[2021-11-04 05:04] LABS: INR 0.9 (0.9-1.1); Partial Thromboplastin Ratio 1.1; Partial Thromboplastin Time 27.9 Seconds (21.0-31.0); Prothrombin Time 9.1 Seconds (9.0-12.0)
[2021-11-04 05:12] LABS: Albumin Globulin Ratio 1.4 (0.9-2); BUN Creatinine Ratio 20.3 (10-20); Bilirubin,Total 0.6 mg/dl (0.2-1.0); Calcium 9.1 mg/dl (8.5-10.1); Creatinine Clr Calc Pharmacy 128.7 ml/min; Est GFR (African American) 124.4 ml/min; Est GFR (Non-African American) 107.4 ml/min; Globulin 2.9 gm/dl (2.5-4.0); Magnesium 1.8 mg/dl (1.7-2.4); Potassium 4.2 mmol/L (3.5-5.1); Total Protein 6.9 gm/dl (6.0-8.3)
[2021-11-04 05:18] LABS: Pregnancy Test, Serum Negative (Negative)
[2021-11-04 05:18] LABS: Appearance Urine Clear (Clear); Bacteria Urine Automated Negative (Negative); Bilirubin Urine Negative (Negative); Blood Urine Trace (Negative); Color Urine Yellow; Epithelial Cell Urine Auto >30 /lpf (0-5); Glucose Urine UA Negative (Negative); Ketones Urine Negative (Negative); Leukocyte Esterase Urine Negative (Negative); Nitrite Urine Negative (Negative); Protein Urine Negative (Negative); Specific Gravity Urine 1.015 (1.000-1.030); Urobilinogen Urine Negative (Negative)
[2021-11-04] MEDS ORDERED: SODIUM CHLORIDE 0.9% 1000ML 1,000 ML IV ONE (05:34)
[2021-11-04] MEDS ORDERED: KETOROLAC TROMETHAMINE 15 MG/ML VIAL IV ONE (05:47)
[2021-11-04 06:26] LABS: Procalcitonin 0.89 ng/ml (0-0.5)
--- NOTE | 2021-11-04 06:37 | CT Scan Report ---
CT SCAN OF THE ABDOMEN AND PELVIS WITHOUT IV CONTRAST CLINICAL HISTORY: Left flank pain. COMPARISON STUDY: Abdominal CT dated 03/19/2020. TECHNIQUE: CT scan of the abdomen and pelvis is performed from the lung bases to the proximal femora. Images are reviewed in the axial, sagittal, and coronal planes. IV contrast was not administered for this examination. A dose lowering technique was utilized adhering to the principles of ALARA. CT DOSE: 1354.77 mGy.cm FINDINGS: Lung bases: The heart is normal in size and without pericardial effusion. The lung bases are clear no ting dependent atelectasis. Liver: The unenhanced liver is enlarged, measuring 20.6 cm in length. The liver demonstrates diffusel y diminished attenuation consistent with hepatic steatosis. Fatty sparing is seen adjacent to the gal lbladder fossa. There is no intrahepatic biliary ductal dilatation. Gallbladder: Unremarkable. Spleen: Normal in size and attenuation. Pancreas: Unremarkable. Adrenal glands: Unremarkable. Kidneys: The unenhanced kidneys are normal in size. There is a 2 mm obstructing calculus in the left proximal ureter at the level of L2. This is located just below the ureteropelvic junction as seen on image #194 and causes mild left-sided hydronephrosis. There is an additional 2 mm nonobstructing calc ulus in the left upper pole. There is a 4 mm nonobstructing calculus in the right kidney. There is no right-sided hydronephrosis. There is no evidence of contour deforming renal mass lesion. Abdominal vasculature: The abdominal aorta is normal in course and caliber noting mild atheroscleroti c calcification. Bowel: The small bowel and colon are normal in course and caliber. The appendix is well-visualized a nd normal. Peritoneum: There is no intraperitoneal free air or abdominal ascites. There is a fat-containing umbi lical hernia. Lymphadenopathy: None. Pelvic viscera: The bladder, uterus, and adnexa are normal as visualized noting right ovarian follicl es. Skeletal structures: No lytic or blastic lesions are seen. IMPRESSION: 1. There is a 2 mm obstructing calculus in the left proximal ureter located just below the ureteropel pietro junction. This causes mild left hydronephrosis. 2. Additional small nonobstructing calculi are seen in both kidneys. 3. Hepatomegaly and hepatic steatosis. 4. Additional findings as above. ACT 112: Negative or not required by law. Electronically signed by: Jules Blake M.D. 11/04/2021 6:36 AM
[2021-11-04] MEDS ORDERED: MoRPHine SULFATE 4 MG/ML 1 ML CARP\\VIAL IV PRN (06:41)
[2021-11-04] MEDS ORDERED: SODIUM CHLORIDE 0.9% 500 ML IV SCH (06:45)
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
--- NOTE | 2021-11-04 08:07 | History and Physical Report ---
DATE OF ADMISSION: 11/04/2021. CHIEF COMPLAINT: Left flank pain. HISTORY OF PRESENT ILLNESS: This is a 41-year-old female with past medical history significant for polycystic ovarian syndrome, chronic rhinitis, mild sleep apnea, morbid obesity, irritable bowel syndrome, history of kidney stones, restless legs syndrome, tobacco use disorder, depression, comes because of left flank pain. The patient is having symptoms since last Saturday and has also had an episode of hematuria, was evaluated by Urology and was placed on Macrobid and cultures drawn, is growing pansensitive E. coli. The patient had few doses of Macrobid but symptoms are not getting better. She states she is having left flank pain, nausea and some burning micturition and also started developing fever and decided to come to the ER. In the ER, she was tachycardic, temperature spike of 38 and white count was 14, procalcitonin 0.89. The patient received fluid bolus and Rocephin. Currently, she is somewhat tachycardic and has some headache. Denies any blurred visions. No earache, no runny nose, no sore throat. No cough. Appetite is not that great today because of nausea. No chest pain, no shortness of breath. Normal bowel movements. No swelling in the legs. Otherwise, ambulates okay. ALLERGIES: SULFA ANTIBIOTICS. PAST MEDICAL HISTORY: As mentioned above. PAST SURGICAL HISTORY: Colonoscopy, ligation of oviduct, kidney stone removal. MEDICATIONS: As per Epic. She is on vitamin D tablets, Flonase. SOCIAL HISTORY: . Smokes 1 pack a day for the last 10 years. Alcohol occasional. No drug use. FAMILY HISTORY: Significant for maternal grandmother had diabetes, cervical cancer. Maternal grandfather had lung disorder. Paternal grandmother had cervical cancer. Father has urolithiasis. REVIEW OF SYSTEMS: As per HPI. Rest of the review of systems is negative. PHYSICAL EXAMINATION: GENERAL: The patient is morbidly obese, not in acute distress. VITAL SIGNS: Temperature T-max 38, pulse 111, respiratory rate 18, blood pressure 107/71, oxygen 95% on room air. HEENT: Pupils equal, round and reactive to light. Oral mucosa moist. NECK: No JVD. No neck masses. CARDIOVASCULAR: S1 and S2 heard. Tachycardia. No murmurs. RESPIRATORY SYSTEM: Normal AP diameter. No accessory muscle use. No wheezing, no crackles. ABDOMEN: Soft, bowel sounds present, no distention, Mild left CVA tenderness present. CENTRAL NERVOUS SYSTEM: Cranial nerves II through XII grossly intact, nonfocal. EXTREMITIES: No edema, no erythema. LABORATORY DATA: WBC 14.8, hemoglobin 15, hematocrit 45, platelets 283. PT 9.1, INR 0.9, APTT 27.9. Sodium 135, potassium 4.2, chloride 104, bicarbonate 23, BUN 14, creatinine 0.6, serum glucose 104, lactate 1.8, calcium 9.1, magnesium 1.8, total bilirubin 0.6, AST 17, ALT 22, alkaline phosphatase 63. HCG negative. Procalcitonin 0.8. Urinalysis negative. SARS-CoV-2 RNA negative. IMAGING DATA: Chest x-ray, no acute findings. CT of abdomen and pelvis without IV contrast 2-mm obstructing calculus in the left proximal ureter located just below the ureteropelvic junction, which caused mild left hydronephrosis. EKG: Sinus tachycardia at a rate of 125, no significant change was found. ASSESSMENT AND PLAN: This is a 41-year-old female who presents with sepsis from obstructing renal calculus. 1. Sepsis. Meets criteria for sepsis with tachycardia, fever spike, white count and UTI. Recent culture is growing pansensitive E. coli, failed outpatient treatment. Also, CAT scan showing 2 mm obstructing calculus in the left proximal ureter. Received fluid bolus in the ER. We will continue with IV fluids, IV Rocephin,. Closely monitor in tele floor, n.p.o. Urology consult for possible stent placement today. Pain control. 2. Morbid obesity. Needs counseling. 3. Tobacco use disorder. Needs counseling. 4. Deep venous thrombosis prophylaxis: Lovenox. DISPOSITION: Closely monitor in the tele floor. Level 1 full code. Expect to discharge home and follow with family doctor. Job ID: [id number] [facility]
[2021-11-04] MEDS ORDERED: ATROPINE SULFATE 0.1 MG/ML 10ML SYR IV PRN (08:21)
[2021-11-04] MEDS ORDERED: fentaNYL citrate 100 MCG/2 ML VIAL IV PRN (08:21)
[2021-11-04] MEDS ORDERED: ePHEDrine sulfate 50 MG/ML AMP IV PRN (08:21)
[2021-11-04] MEDS ORDERED: ONDANSETRON INJ 2 MG/ML 2 ML VIAL IV PRN (08:21)
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
--- NOTE | 2021-11-04 08:58 | XRay Report ---
SINGLE VIEW CHEST CLINICAL HISTORY: Sepsis. FINDINGS: An AP, portable, upright chest radiograph is compared to study dated 03/19/2020. The cardiome diastinal silhouette is unremarkable. There is mild bibasilar atelectasis. The lungs and pleural spac es are otherwise clear. No pneumothorax is seen. The bony thorax is grossly intact. IMPRESSION: No active disease in the chest. ACT 112: Negative or not required by law. Electronically signed by: Jules Blake M.D. 11/04/2021 8:56 AM
[2021-11-04] MEDS ORDERED: fentaNYL citrate 100 MCG/2 ML VIAL ONE (09:23)
[2021-11-04] MEDS ORDERED: ONDANSETRON INJ 2 MG/ML 2 ML VIAL ONE (09:23)
[2021-11-04] MEDS ORDERED: LIDOCAINE 2% 2 ML VIAL/AMP(20MG/ML) INFIL ONE (09:23)
[2021-11-04] MEDS ORDERED: PROPOFOL IV EMULSION 10 MG/ML 20 ML VIAL IV ONE ×2 (09:23→10:05)
[2021-11-04] MEDS ORDERED: MIDAZOLAM HCL 1 MG/ML 2ML VIAL ONE (09:24)
[2021-11-04] MEDS ORDERED: KETAMINE 50 MG/5 ML SYRINGE ONE (09:42)
--- NOTE | 2021-11-04 09:50 | Electrocardiogram Report ---
Test Reason : Blood Pressure : / mmHG Vent. Rate : 125 BPM Atrial Rate : 125 BPM P-R Int : 132 ms QRS Dur : 074 ms QT Int : 312 ms P-R-T Axes : 061 057 046 degrees QTc Int : 450 ms Sinus tachycardia Otherwise normal ECG When compared with ECG of 19-MAR-2020 21:54, No significant change was found Confirmed by Marc Perez ([id number]) on 11/04/2021 9:49:58 AM Referred By: REFERRED SELF Confirmed By:Marc Perez
[2021-11-04] MEDS ORDERED: DIATRIZOATE MEGLUMINE 30% 100ML VIAL INSTIL ONE (10:07)
--- NOTE | 2021-11-04 10:23 | Operative Report ---
PG Post Operative Report Pre & Post Diagnosis Operation Date: 11/04/21 09:30 Pre-Op Diagnosis: Nephrolithiasis Left Kidney Stone Post-Op Diagnosis: Nephrolithiasis Left Kidney Stone I identified the patient and participated in the time-out.: Yes Procedure Operation Date: 11/04/21 09:30 Actual Procedures p Cystoscopy,Left Retrograde Pyelogram, Left Ureteral Stent Placement(Left) - Simone Ford MD Surgeon Simone Ford MD Button Station Worker None Estimated Blood Loss 0 Findings See Below Successful left ureteral stent placement Specimens None Drains 6 Mongolian by 24 cm double-J ureteral stent in the left ureter Anesthesia Type General Complications none Disposition Disposition: Recovery Room Indications This is a 41-year-old female who presented to the emergency department with flank pain and fevers and chills. She was found to have a 2 mm left-sided proximal ureteral stone. Due to the concern for infection and stone, she is being brought to the OR for left ureteral stent placement for maximal urinary drainage. Description of Procedure The patient was identified in the holding area and informed consent was confirmed. They were marked on the left side, then were taken to the operating room where general anesthesia was initiated. They were placed in the dorsal lithotomy position with all pressure points appropriately padded. They were prepped and draped in the usual sterile fashion and a preoperative timeout was performed. A well-lubricated cystoscope was inserted per urethra and panendoscopy was performed. Her bladder was of normal size. There was some mucosal irritation from recent infection. There were no tumors or stones appreciated. Ureteral orifices were in orthotopic position. The left ureteral orifice was identified and cannulated with a 5 Mongolian open- ended catheter. A retrograde pyelogram was performed demonstrating the left ureter was normal in course and caliber, there was mild hydronephrosis of the left kidney. A 0.038" ZIPwire was advanced to the level of the kidney under fluoroscopic guidance. Over the wire, a 6 Mongolian x 24 centimeter double-J ureteral stent was advanced. When the wire was removed, the proximal curl was visualized in the kidney with x-ray, and the distal curl visualized in the bladder with the cystoscope. At this point the bladder was drained and all instrumentation was removed. The patient was then awakened from anesthesia and was brought to the PACU in stable condition. I attest to the content of the Intraoperative Record and any orders documented therein. Any exceptions are noted below.
[2021-11-04] MEDS ORDERED: NITROGLYCERIN SL 0.4 MG/TAB TAB SL PRN (10:24)
[2021-11-04] MEDS ORDERED: POLYETHYLENE (MIRALAX) 17 GM PACK PO PRN (10:24)
--- NOTE | 2021-11-04 10:41 | Anesthesiology Progress Note ---
Date of Service November 04, 2021 Anesthesia Post Procedure Vital Signs Vital Signs: Temp Pulse Pulse Resp BP BP Pulse Ox 11/04/21 10:30 97.7 F 92 H 15 110/81 96 11/04/21 10:25 95 H 20 116/84 93 11/04/21 10:15 98.1 F 104 H 16 106/66 93 11/04/21 09:28 97.5 F L 96 H 20 124/67 96 11/04/21 07:30 104 H 17 110/49 L 91 11/04/21 07:00 108 H 29 H 113/71 93 11/04/21 06:35 108 H 21 107/71 92 11/04/21 06:32 108 H 11 L 171/114 H 93 11/04/21 06:30 107 H 111 H 19 107/71 92 11/04/21 06:00 115 H 110 H 24 133/74 133/74 93 11/04/21 05:40 115 H 18 142/76 H 95 11/04/21 05:36 115 H 17 142/76 H 95 11/04/21 05:30 18 95 11/04/21 05:10 20 95 11/04/21 05:00 120 H 13 94 11/04/21 04:44 128 H 20 96 11/04/21 04:42 100.4 F H 130 H 20 149/103 H 96 11/04/21 04:33 127 H 17 11/04/21 03:53 99.1 F 139 H 20 180/90 H 98 Pain Intensity Left Flank: Pain Intensity: 3 Transfer of Care Handoff Completed per policy Notes Mental Status: alert / awake / arousable and participated in evaluation Patient Amnestic to Procedure: Yes Nausea / Vomiting: adequately controlled Pain: adequately controlled Airway Patency, RR, SpO2: stable & adequate BP & HR: stable & adequate Hydration State: stable & adequate Anesthetic Complications: no major complications apparent and Pt Satisfied with anesthetic care
--- NOTE | 2021-11-04 11:59 | Fluoroscopy Report ---
INTRAOPERATIVE RADIOGRAPH CLINICAL HISTORY: Left-sided ureteral stent placement. Fluoroscopy time: 7 seconds. FINDINGS: A single spot fluoroscopic image of the left upper abdomen is correlated with abdominal CT performed the same day 11/04/2021. Contrast within the left renal collecting system shows minimal left -sided hydronephrosis. The proximal end of a left ureteral stent is in appropriate position. IMPRESSION: Intraoperative images from a left ureteral stent placement procedure as above. Electronically signed by: Jules Blake M.D. 11/04/2021 11:58 AM
[2021-11-04] MEDS: SODIUM CHLORIDE 0.9% 1000ML 1,000 ML IV SCH ×2 (12:06→15:57)
[2021-11-04] MEDS: ENOXAPARIN INJ 40 MG/0.4 ML SYR SQ SCH (12:06)
[2021-11-04] MEDS: TAMSULOSIN HCL 0.4 MG CAP PO SCH (12:06)
[2021-11-04] MEDS: ONDANSETRON INJ 2 MG/ML 2 ML VIAL IV PRN ×2 (13:37→21:33)
[2021-11-04] MEDS: MoRPHine SULFATE 4 MG/ML 1 ML CARP\\VIAL IV PRN ×2 (13:37→21:33)
[2021-11-04] MEDS: KETOROLAC 30 MG/ML VIAL IV PRN ×2 (13:38→19:45)
--- NOTE | 2021-11-04 17:25 | Communication Note ---
Date of Service: November 04, 2021 The patient was seen and examined in emergency room in the [facility] area She was admitted with sepsis secondary to left ureteric obstruction and underwent cystoscopy with stent placement Clinically stable with some pain without fever and no chills. We will continue current management including intravenous antibiotic We will a full progress note tomorrow. Dr Remington Franklin
[2021-11-05] MEDS: SODIUM CHLORIDE 0.9% 1000ML 1,000 ML IV SCH ×2 (00:09→10:30)
[2021-11-05] MEDS: KETOROLAC 30 MG/ML VIAL IV PRN ×2 (04:57→20:05)
[2021-11-05] MEDS: ONDANSETRON INJ 2 MG/ML 2 ML VIAL IV PRN (04:57)
[2021-11-05] MEDS: MoRPHine SULFATE 4 MG/ML 1 ML CARP\\VIAL IV PRN ×3 (04:58→15:12)
[2021-11-05] MEDS: cefTRIAXone SODIUM 2,000 MG in DEXTROSE 5% 50 ML IV SCH (05:01)
[2021-11-05] MEDS: ACETAMINOPHEN 325 MG TAB PO PRN ×2 (05:07→11:54)
[2021-11-05 05:37] LABS: Basophils # (auto) 0.04 K/uL (0-0.2); Basophils % (auto) 0.4 %; Eosinophils # (auto) 0.64 K/uL (0-0.5); Eosinophils % (auto) 5.6 %; Hematocrit (blood only) 38.9 % (37-47); Hemoglobin 12.8 g/dL (12.0-16.0); Immature Granulocytes # (auto) 0.03 K/uL (0.00-0.02); Immature Granulocytes % (auto) 0.3 %; Lymphocytes # (auto) 0.86 K/uL (1.2-3.4); Lymphocytes % (auto) 7.6 %; Mean Corpuscular Hemoglobin 30.8 pg (25-34); Mean Corpuscular Hgb Conc 32.9 g/dL (32-36); Mean Corpuscular Volume 93.7 fL (80-100); Mean Platelet Volume 9.6 fL (7.4-10.4); Monocytes # (auto) 0.92 K/uL (0.11-0.59); Monocytes % (auto) 8.1 %; Neutrophils # (auto) 8.85 K/uL (1.4-6.5); Platelet Count 231 K/uL (130-400); RDW Coefficient of Variation 13.8 % (11.5-14.5); RDW Standard Deviation 47.5 fL (36.4-46.3); Red Blood Count 4.15 M/uL (4.2-5.4); White Blood Count 11.34 K/uL (4.8-10.8)
[2021-11-05 06:02] LABS: Albumin Globulin Ratio 1.4 (0.9-2); Albumin Level 3.3 gm/dl (3.4-5.0); BUN Creatinine Ratio 14.9 (10-20); Bilirubin,Total 0.5 mg/dl (0.2-1.0); Calcium 8.1 mg/dl (8.5-10.1); Est GFR (African American) 115.8 ml/min; Est GFR (Non-African American) 99.9 ml/min; Globulin 2.4 gm/dl (2.5-4.0); Magnesium 1.6 mg/dl (1.7-2.4); Total Protein 5.7 gm/dl (6.0-8.3)
--- NOTE | 2021-11-05 09:16 | Urology Progress Note ---
Date of Service November 05, 2021 Assessment & Plan (1) Flank Pain: (2) UTI (urinary tract infection): Plan: Overall, Ms. Galindo appears to be doing well. She is tolerating the left stent without significant issues. She still having some fevers, although these can persist for up to 72 hours after adequate antibiotics and drainage of a pyelonephritis. Right-sided flank pain could represent the contralateral stone moving, but could also represent infection or other etiology of pain on that side. For now I would recommend monitoring, but if the pain persists, worsens, or if she does not start to clear her fevers, I would recommend obtaining a retroperitoneal ul trasound to assess for right-sided hydronephrosis. Agree with antibiotic coverage with ceftriaxone, can narrow down as blood and urine cultures become available. Urology will follow along. Admission and Anticipated Discharge Date Admission Date: November 04, 2021 Subjective Feeling somewhat better s/p left ureteral stent placement on 11/04/2021. Reports some new dull right-sided flank pain -prior CT did show a 4 mm stone in the right kidney. Still having some fevers/chills Vital signs have been improving Leukocytosis Down from 14.8-11.3, renal function stable Urine cultures from 10/31 with pansensitive E. coli. Repeat blood and urine cultures pending. Review of Systems Constitutional: Still intermittent fevers and chills Genitourinary: Low-grade right-sided flank pain Physical Exam Constitutional: Slightly flushed, NAD Respiratory: Breathing comfortably on room air Cardiovascular: Regular rate and rhythm Gastrointestinal (Abdomen): Soft, nontender Results & Data ([facility]) Vital Signs (Past 12 Hours) Vital Signs Temp Pulse Pulse Resp BP Pulse Ox 11/05/21 07:42 36.7 C 96 H 20 94/58 L 93 11/05/21 07:33 116 H 11/05/21 07:00 16 11/05/21 03:24 38.2 C H 120 H 18 124/67 96 11/05/21 03:00 18 11/04/21 23:59 106 H 11/04/21 23:13 37.2 C 112 H 18 150/71 H 95 11/04/21 23:00 18 PG Care Time/CCT Total # of Minutes Spent Total Time Spent with Patient: Total time spent is greater than 50% in coordination of care (as documented) at patient's floor/unit and/or counseling patient: Coding Level of Care Code 11178 Subseq Hosp Care Lvl 2 Diagnoses Flank Pain R10.9 UTI (urinary tract infection) N30.01 Hematuria presence: with hematuria Urinary tract infection type: acute cystitis (1) UTI (urinary tract infection) Hematuria presence: with hematuria Urinary tract infection type: acute cystitis Qualified Code(s): N30.01 - Acute cystitis with hematuria
[2021-11-05] MEDS: TAMSULOSIN HCL 0.4 MG CAP PO SCH (09:44)
[2021-11-05] MEDS: ENOXAPARIN INJ 40 MG/0.4 ML SYR SQ SCH (11:53)
[2021-11-05] MEDS: NICOTINE 14 MG/24 HR PATCH TD SCH (15:11)
--- NOTE | 2021-11-05 16:19 | Hospitalist Progress Note ---
Date of Service November 05, 2021 Assessment & Plan (1) Sepsis: Plan: Presented with left flank pain and going towards the groin associated with fever, chills and sweating Met the criteria for sepsis and noted to be secondary to UTI with obstructed ureteric stone Has been started on intravenous Rocephin Urine culture is growing E. coli which is pansensitive and the blood cultures are negative so far White count is improving and fever decreased Continue current intravenous antibiotic (2) UTI (urinary tract infection): Plan: As above (3) Ureterolithiasis: Plan: Left ureterolithiasis with UTI and history of nephrolithiasis Appreciate urology input and recommendation Status post cystoscopy with left ureteric stent placement (4) Flank Pain: Plan: Secondary to left ureteral stone with a stent placement We will continue current pain medications (5) Morbid obesity: (6) History of nephrolithiasis: Plan: Other significant medical conditions including anxiety/depression remained stable DVT prophylaxis Subcu Lovenox CODE STATUS Full Admission and Anticipated Discharge Date Admission Date: November 04, 2021 Subjective 11/05/2021 The patient was seen and examined in telemetry unit She has been feeling much better and has had one episode of fever of 38C last night The abdominal pain seems to be improving Review of Systems Review of Systems: All systems reviewed and are unremarkable except as noted below Gastrointestinal: Minimal abdominal pain Physical Exam Physical Exam: Lying in bed comfortably Constitutional: well developed, well nourished, + ill appearing and + obese Eyes: PERRL, conjunctivae normal, anicteric sclerae ENMT: external ear and nose normal, oropharynx normal Neck: trachea midline, no thyromegaly Respiratory: no respiratory distress Auscultation: lungs clear to auscultation bilaterally Cardiovascular: Rate/Rhythm: regular rate, regular rhythm and + tachycardic Heart Sounds: normal S1 and normal S2; no murmur Extremities: no edema Gastrointestinal (Abdomen): Inspection/Auscultation: abdomen not distended Percussion/Palpation: + abdomen tender (Left lower quadrants) Musculoskeletal: No acute arthritis in any joint Neurologic: Alert, awake and oriented x3. No focal sensory and motor deficit appreciated Results & Data Results & Data ([facility]) Vital Signs (Past 12 Hours) Vital Signs Temp Pulse Pulse Resp BP Pulse Ox 11/05/21 14:54 110 H 11/05/21 11:43 36.4 C L 93 H 20 114/71 91 11/05/21 07:42 36.7 C 96 H 20 94/58 L 93 11/05/21 07:33 116 H 11/05/21 07:00 16 Laboratory Results Short CBC 11/05/21 Range/Units 05:18 WBC 11.34 H (4.8-10.8) K/uL Hgb 12.8 (12.0-16.0) g/dL Hct 38.9 (37-47) % Plt Count 231 (130-400) K/uL BMP 11/05/21 05:18 Sodium 133 L Potassium 4.0 Chloride 103 Carbon Dioxide 24 BUN 11 Creatinine 0.74 Glucose 101 H Calcium 8.1 L Liver Function 11/05/21 Range/Units 05:18 Total Bilirubin 0.5 (0.2-1.0) mg/dl AST 21 (13-39) U/L ALT 23 (7-52) U/L Alkaline Phosphatase 55 (34-104) U/L Albumin 3.3 L (3.4-5.0) gm/dl Medications Administered Current Inpatient Medications Acetaminophen (Acetaminophen 325 Mg Tab) 650 mg PO Q4H PRN PRN Reason: Pain or Fever Stop: 12/04/21 10:23 Last Admin: 11/05/21 11:54 Dose: 650 mg Documented by: Enoxaparin Sodium (Enoxaparin Inj 40 Mg/0.4 Ml Syr) 40 mg SQ Q24H [facility] Stop: 12/04/21 10:59 Last Admin: 11/05/21 11:53 Dose: 40 mg Documented by: Ceftriaxone Sodium 2,000 mg/ (Dextrose) 70 mls @ 100 mls/hr IV Q24H [facility]; Protocol Stop: 11/14/21 05:59 Last Infusion: 11/05/21 05:44 Dose: Infused Documented by: Ketorolac Tromethamine (Ketorolac 30 Mg/Ml Vial) 30 mg IV Q6H PRN PRN Reason: Pain Stop: 11/09/21 13:26 Last Admin: 11/05/21 04:57 Dose: 30 mg Documented by: Miscellaneous (Remove Nicoderm Patch) 1 ea N/A DAILY@0859 [facility] Stop: 12/06/21 08:58 Morphine Sulfate (Morphine Sulfate 4 Mg/Ml 1 Ml Carp\Vial) 4 mg IV Q4H PRN PRN Reason: Pain Stop: 11/18/21 06:40 Last Admin: 11/05/21 15:12 Dose: 4 mg Documented by: Nicotine (Nicotine 14 Mg/24 Hr Patch) 14 mg TD [facility] Stop: 12/05/21 14:44 Last Admin: 11/05/21 15:11 Dose: 14 mg Documented by: Nitroglycerin (Nitroglycerin Sl 0.4 Mg/Tab Tab) 0.4 mg SL UD PRN PRN Reason: Chest Pain Stop: 12/04/21 10:23 Ondansetron HCl (Ondansetron Inj 2 Mg/Ml 2 Ml Vial) 4 mg IV Q6H PRN PRN Reason: Nausea Stop: 12/04/21 10:23 Last Admin: 11/05/21 04:57 Dose: 4 mg Documented by: Polyethylene Glycol (Polyethylene (Miralax) 17 Gm Pack) 17 gm PO DAILY PRN PRN Reason: Constipation Stop: 12/04/21 10:23 Tamsulosin HCl (Tamsulosin Hcl 0.4 Mg Cap) 0.4 mg PO [facility] Stop: 12/04/21 10:59 Last Admin: 11/05/21 09:44 Dose: 0.4 mg Documented by: (1) UTI (urinary tract infection) Hematuria presence: with hematuria Urinary tract infection type: acute cystitis Qualified Code(s): N30.01 - Acute cystitis with hematuria
[2021-11-06] MEDS: KETOROLAC 30 MG/ML VIAL IV PRN (02:38)
[2021-11-06] MEDS: MoRPHine SULFATE 4 MG/ML 1 ML CARP\\VIAL IV PRN (03:52)
[2021-11-06] MEDS: cefTRIAXone SODIUM 2,000 MG in DEXTROSE 5% 50 ML IV SCH (05:42)
[2021-11-06 07:29] LABS: Basophils # (auto) 0.03 K/uL (0-0.2); Basophils % (auto) 0.4 %; Eosinophils # (auto) 0.67 K/uL (0-0.5); Eosinophils % (auto) 8.8 %; Hematocrit (blood only) 39.6 % (37-47); Hemoglobin 12.7 g/dL (12.0-16.0); Immature Granulocytes # (auto) 0.02 K/uL (0.00-0.02); Immature Granulocytes % (auto) 0.3 %; Lymphocytes # (auto) 1.41 K/uL (1.2-3.4); Lymphocytes % (auto) 18.5 %; Mean Corpuscular Hemoglobin 29.8 pg (25-34); Mean Corpuscular Hgb Conc 32.1 g/dL (32-36); Mean Platelet Volume 9.5 fL (7.4-10.4); Monocytes # (auto) 0.59 K/uL (0.11-0.59); Monocytes % (auto) 7.7 %; Neutrophils % (auto) 64.3 %; Platelet Count 208 K/uL (130-400); RDW Coefficient of Variation 13.6 % (11.5-14.5); RDW Standard Deviation 46.3 fL (36.4-46.3); Red Blood Count 4.26 M/uL (4.2-5.4); White Blood Count 7.62 K/uL (4.8-10.8)
[2021-11-06 07:52] LABS: BUN Creatinine Ratio 16.4 (10-20); Calcium 8.1 mg/dl (8.5-10.1); Est GFR (African American) 125.7 ml/min; Est GFR (Non-African American) 108.4 ml/min; Potassium 3.8 mmol/L (3.5-5.1)
[2021-11-06] MEDS: TAMSULOSIN HCL 0.4 MG CAP PO SCH (08:35)
[2021-11-06] MEDS: NICOTINE 14 MG/24 HR PATCH TD SCH (08:35)
--- NOTE | 2021-11-06 08:41 | Urology Progress Note ---
Date of Service November 06, 2021 Assessment & Plan (1) UTI (urinary tract infection): (2) Flank Pain: Plan: 41yo F admitted with sepsis secondary to UTI and an obstructing left ureteral stone. - POD#2 s/p left ureteral stent placement with Dr. Ford. - Doing well, tolerating the left ureteral stent with minimal bother. - Right flank pain improved today. Recommend continuing to monitor. If pain persists/worsens, recommend renal ultrasound for further evaluation. - No fevers overnight. - Labs reviewed - Leukocytosis down from 11.34-7.62, renal function stable. - Urine culture from 10/31 with pansensitive E. coli, UC&S on admit 11/04 with low counts probable skin cristhian - Blood cultures preliminary no growth x 48 hours. - Continues on IV Ceftriaxone, follow cultures. - Recommend discharge per primary team with tamsulosin, prn pain medication, and course of antibiotics per final culture results. - Will arrange outpatient follow-up with our service for stone and stent management. - will sign-off, please contact us with any additional questions, concerns, or changes in patient status. Admission and Anticipated Discharge Date Admission Date: November 04, 2021 Subjective Pt examined at bedside this AM. Awake, resting in bed on arrival. Overall doing well. No fevers overnight. Tolerating the left ureteral stent with minimal bother. Right sided flank pain improved today. Voiding without issue. Some hematuria, no dysuria. Feels she is emptying her bladder. Tolerating diet, no nausea or vomiting. No additional complaints at time of exam. Review of Systems Constitutional: as per Subjective / HPI Gastrointestinal: as per Subjective / HPI Genitourinary: as per Subjective / HPI Physical Exam Constitutional: well developed and well nourished; no acute distress Respiratory: normal respiratory effort and able to speak in complete sentences; no labored breathing and no audible wheezes Gastrointestinal (Abdomen): Inspection/Auscultation: abdomen normal to inspection; abdomen not distended Musculoskeletal: Head/Neck/Chest: normocephalic Skin: No visible rashes or lesions to exposed skin areas Neurologic: moves all extremities and awake Psychiatric: Orientation: alert, oriented x 3 and cooperative Results & Data ([facility]) Vital Signs (Past 12 Hours) Vital Signs Temp Pulse Pulse Resp BP Pulse Ox 11/06/21 07:35 36.7 C 100 H 18 106/65 94 02/21/22 07:20 94 H 11/06/21 03:30 36.6 C 91 H 18 120/81 93 11/05/21 23:49 105 H 11/05/21 23:15 36.6 C 90 18 111/72 94 PG Care Time/CCT Total # of Minutes Spent Total Time Spent with Patient: Total time spent is greater than 50% in coordination of care (as documented) at patient's floor/unit and/or counseling patient: Coding Level of Care Code 06580 Subseq Hosp Care Lvl 2 Diagnoses UTI (urinary tract infection) N30.01 Hematuria presence: with hematuria Urinary tract infection type: acute cystitis Flank Pain R10.9 (1) UTI (urinary tract infection) Hematuria presence: with hematuria Urinary tract infection type: acute cystitis Qualified Code(s): N30.01 - Acute cystitis with hematuria
--- NOTE | 2021-11-06 11:44 | Hospitalist Progress Note ---
Date of Service November 06, 2021 Assessment & Plan (1) Sepsis: Plan: Presented with left flank pain and going towards the groin associated with fever, chills and sweating Met the criteria for sepsis and noted to be secondary to UTI with obstructed ureteric stone Has been started on intravenous Rocephin Urine culture is growing E. coli which is pansensitive and the blood cultures are negative so far White count is improving and fever decreased Continue current intravenous antibiotic Blood cultures after 48 hours have been negative and if anything grows most likely going to be E. coli which would be pansensitive I believe We will change antibiotic to oral Keflex and will discharge home this afternoon (2) UTI (urinary tract infection): Plan: As above (3) Ureterolithiasis: Plan: Left ureterolithiasis with UTI and history of nephrolithiasis Appreciate urology input and recommendation Status post cystoscopy with left ureteric stent placement Urology making up appointment as an outpatient for his stent management (4) Flank Pain: Plan: Secondary to left ureteral stone with a stent placement We will continue current pain medications Pain seems to be controlled (5) Morbid obesity: (6) History of nephrolithiasis: Plan: Other significant medical conditions including anxiety/depression remained stable DVT prophylaxis Subcu Lovenox CODE STATUS Full Admission and Anticipated Discharge Date Admission Date: November 04, 2021 Subjective 11/05/2021 The patient was seen and examined in telemetry unit She has been feeling much better and has had one episode of fever of 38C last night The abdominal pain seems to be improving 11/06/2021 The patient was seen and examined in telemetry unit She has been feeling much better and did not have any fever and or chills Her pain is improved She is ambulating in the room without any difficulties and she will be disch arged home this afternoon Review of Systems Review of Systems: All systems reviewed and are unremarkable except as noted below Gastrointestinal: Minimal abdominal pain Physical Exam Physical Exam: Lying in bed comfortably Constitutional: well developed, well nourished, + ill appearing and + obese Eyes: PERRL, conjunctivae normal, anicteric sclerae ENMT: external ear and nose normal, oropharynx normal Neck: trachea midline, no thyromegaly Respiratory: no respiratory distress Auscultation: lungs clear to auscultation bilaterally Cardiovascular: Rate/Rhythm: regular rate, regular rhythm and + tachycardic Heart Sounds: normal S1 and normal S2; no murmur Extremities: no edema Gastrointestinal (Abdomen): Inspection/Auscultation: abdomen not distended Percussion/Palpation: + abdomen tender (Left lower quadrants) Musculoskeletal: No acute arthritis in any joint Neurologic: normal touch/pain/proprioception; no focal motor deficits Results & Data Results & Data ([facility]) Vital Signs (Past 12 Hours) Vital Signs Temp Pulse Pulse Resp BP BP Pulse Ox 11/06/21 11:35 37.1 C 95 H 19 123/79 94 11/06/21 07:35 36.7 C 100 H 18 106/65 94 11/06/21 07:20 94 H 11/06/21 07:00 14 94 11/06/21 03:30 36.6 C 91 H 18 120/81 93 11/05/21 23:49 105 H Laboratory Results Short CBC 11/06/21 Range/Units 07:12 WBC 7.62 (4.8-10.8) K/uL Hgb 12.7 (12.0-16.0) g/dL Hct 39.6 (37-47) % Plt Count 208 (130-400) K/uL BMP 11/06/21 07:12 Sodium 137 Potassium 3.8 Chloride 106 Carbon Dioxide 26 BUN 11 Creatinine 0.67 Glucose 105 H Calcium 8.1 L Medications Administered Current Inpatient Medications Acetaminophen (Acetaminophen 325 Mg Tab) 650 mg PO Q4H PRN PRN Reason: Pain or Fever Stop: 12/04/21 10:23 Last Admin: 11/05/21 11:54 Dose: 650 mg Documented by: Enoxaparin Sodium (Enoxaparin Inj 40 Mg/0.4 Ml Syr) 40 mg SQ Q24H [facility] Stop: 12/04/21 10:59 Last Admin: 11/05/21 11:53 Dose: 40 mg Documented by: Ceftriaxone Sodium 2,000 mg/ (Dextrose) 70 mls @ 100 mls/hr IV Q24H [facility]; Protocol Stop: 11/14/21 05:59 Last Infusion: 11/06/21 06:28 Dose: Infused Documented by: Ketorolac Tromethamine (Ketorolac 30 Mg/Ml Vial) 30 mg IV Q6H PRN PRN Reason: Pain Stop: 11/09/21 13:26 Last Admin: 11/06/21 02:38 Dose: 30 mg Documented by: Miscellaneous (Remove Nicoderm Patch) 1 ea N/A DAILY@0859 [facility] Stop: 12/06/21 08:58 Last Admin: 11/06/21 08:35 Dose: 1 ea Documented by: Morphine Sulfate (Morphine Sulfate 4 Mg/Ml 1 Ml Carp\Vial) 4 mg IV Q4H PRN PRN Reason: Pain Stop: 11/18/21 06:40 Last Admin: 11/06/21 03:52 Dose: 4 mg Documented by: Nicotine (Nicotine 14 Mg/24 Hr Patch) 14 mg TD [facility] Stop: 12/05/21 14:44 Last Admin: 11/06/21 08:35 Dose: 14 mg Documented by: Nitroglycerin (Nitroglycerin Sl 0.4 Mg/Tab Tab) 0.4 mg SL UD PRN PRN Reason: Chest Pain Stop: 12/04/21 10:23 Ondansetron HCl (Ondansetron Inj 2 Mg/Ml 2 Ml Vial) 4 mg IV Q6H PRN PRN Reason: Nausea Stop: 12/04/21 10:23 Last Admin: 11/05/21 04:57 Dose: 4 mg Documented by: Polyethylene Glycol (Polyethylene (Miralax) 17 Gm Pack) 17 gm PO DAILY PRN PRN Reason: Constipation Stop: 12/04/21 10:23 Last Admin: 11/05/21 20:05 Dose: 17 gm Documented by: Tamsulosin HCl (Tamsulosin Hcl 0.4 Mg Cap) 0.4 mg PO [facility] Stop: 12/04/21 10:59 Last Admin: 11/06/21 08:35 Dose: 0.4 mg Documented by: (1) UTI (urinary tract infection) Hematuria presence: with hematuria Urinary tract infection type: acute cystitis Qualified Code(s): N30.01 - Acute cystitis with hematuria
[2021-11-06] MEDS: ENOXAPARIN INJ 40 MG/0.4 ML SYR SQ SCH (12:14)
[2021-11-06] MEDS ORDERED: cephALEXin 500 MG CAP PO SCH (14:00)
--- NOTE | 2021-11-07 09:30 | Discharge Summary ---
Date of Service November 07, 2021 Admission HPI Per Admitting Provider DICTATED BY:Davis Kruger MD DATE OF ADMISSION: 11/04/2021. CHIEF COMPLAINT: Left flank pain. HISTORY OF PRESENT ILLNESS: This is a 41-year-old female with past medical history significant for polycystic ovarian syndrome, chronic rhinitis, mild sleep apnea, morbid obesity, irritable bowel syndrome, history of kidney stones, restless legs syndrome, tobacco use disorder, depression, comes because of left flank pain. The patient is having symptoms since last Saturday and has also had an episode of hematuria, was evaluated by Urology and was placed on Macrobid and cultures drawn, is growing pansensitive E. coli. The patient had few doses of Macrobid but symptoms are not getting better. She states she is having left flank pain, nausea and some burning micturition and also started developing fever and decided to come to the ER. In the ER, she was tachycardic, temperature spike of 38 and white count was 14, procalcitonin 0.89. The patient received fluid bolus and Rocephin. Currently, she is somewhat tachycardic and has some headache. Denies any blurred visions. No earache, no runny nose, no sore throat. No cough. Appetite is not that great today because of nausea. No chest pain, no shortness of breath. Normal bowel movements. No swelling in the legs. Otherwise, ambulates okay. Admission Exam Per Admitting Provider GENERAL: The patient is morbidly obese, not in acute distress. VITAL SIGNS: Temperature T-max 38, pulse 111, respiratory rate 18, blood pressure 107/71, oxygen 95% on room air. HEENT: Pupils equal, round and reactive to light. Oral mucosa moist. NECK: No JVD. No neck masses. CARDIOVASCULAR: S1 and S2 heard. Tachycardia. No murmurs. RESPIRATORY SYSTEM: Normal AP diameter. No accessory muscle use. No wheezing, no crackles. ABDOMEN: Soft, bowel sounds present, no distention, Mild left CVA tenderness present. CENTRAL NERVOUS SYSTEM: Cranial nerves II through XII grossly intact, nonfocal. EXTREMITIES: No edema, no erythema. Principal Diagnosis Sepsis secondary to UTI, left ureterolithiasis status post cystoscopy and stent placement, history of nephrolithiasis Discharge Exam Lying in bed comfortably Constitutional well developed, well nourished, + ill appearing and + obese Eyes PERRL, conjunctivae normal, anicteric sclerae ENMT external ear and nose normal, oropharynx normal Neck trachea midline, no thyromegaly Respiratory no respiratory distress Auscultation: lungs clear to auscultation bilaterally Cardiovascular Rate/Rhythm: regular rate, regular rhythm and + tachycardic Heart Sounds: normal S1 and normal S2; no murmur Extremities: no edema Gastrointestinal (Abdomen) Inspection/Auscultation: abdomen not distended Percussion/Palpation: + abdomen tender (Left lower quadrants) Neurologic normal touch/pain/proprioception; no focal motor deficits Discharge Data Allergies Allergy/AdvReac Type Severity Reaction Status Date / Time Sulfa (Sulfonamide Allergy Severe TONGUE Verified 11/04/21 08:00 Antibiotics) SWELLING Consultations 11/04/21 08:00 Consult Urology Routine Procedures Performed Operation Date: 11/04/21 09:30 Actual Procedures p Cystoscopy,Left Retrograde Pyelogram, Left Ureteral Stent Placement(Left) - Simone Ford MD Ordered Studies 11/04/21 [place] retrograde includes kub Routine 11/04/21 04:10 CT abd pelvis wo con Urgent Hospital Course (1) Sepsis: Presented with left flank pain and going towards the groin associated with fever, chills and sweating Met the criteria for sepsis and noted to be secondary to UTI with obstructed ureteric stone Has been started on intravenous Rocephin Urine culture is growing E. coli which is pansensitive and the blood cultures are negative so far White count is improving and fever decreased Continue current intravenous antibiotic Blood cultures after 48 hours have been negative and if anything grows most likely going to be E. coli which would be pansensitive I believe We will change antibiotic to oral Keflex and will discharge home this afternoon (2) UTI (urinary tract infection): As above (3) Ureterolithiasis: Left ureterolithiasis with UTI and history of nephrolithiasis Appreciate urology input and recommendation Status post cystoscopy with left ureteric stent placement Urology making up appointment as an outpatient for his stent management (4) Flank Pain: Secondary to left ureteral stone with a stent placement We will continue current pain medications Pain seems to be controlled (5) Morbid obesity: (6) History of nephrolithiasis: Other significant medical conditions including anxiety/depression remained stable DVT prophylaxis Subcu Lovenox CODE STATUS Full Total Time Total Time Spent Total Time Spent (In Minutes): 35 minutes Discharge Plan Discharge Items Patient Disposition: Home - Self-Care Reason For Visit: TEMP 99.7, LEFT FLANK PAIN,VOMITING Discharge Diagnosis: Sepsis secondary to UTI, left ureterolithiasis status post cystoscopy and stent placement, history of nephrolithiasis Condition on Discharge: Fair Activity: Resume your previous activity Non-emergency contact: Primary Care Provider Call non-emergency contact if: you have any medication questions and your symptoms worsen Follow-up/Referrals: Lai Kathleen MD [Primary Care Provider] - (Date & Time 11/10/2021 11:20 AM Provider Lai Kathleen MD Department [facility] ) Diet: Regular Addtl Attending Provider Instructions: Try to drink more fluid Please finish the course of antibiotic as advised Take ibuprofen [id number] 600 mg 3 times daily as needed with food for pain Keep appointment with your primary care provider [facility] urology service will give you a call for an appointment Pending Studies at Discharge: No Stand-Alone Forms: My [facility], Work/School Release, Smoking Cessation Medications and DC Order Prescriptions: New cephalexin 500 mg Capsule 500 mg PO TID 5 Days Qty: 15 RF: 0 nicotine 14 mg/24 hr patch 24 hour 1 patch transdermal QAM 30 Days Qty: 30 RF: 0 tamsulosin 0.4 mg Capsule 0.4 mg PO QAM 30 Days Qty: 30 RF: 0 Continued ibuprofen 200 mg Tablet 600 mg PO Q6H PRN (Reason: Pain) RF: 0 Discontinued nitrofurantoin monohyd/m-cryst [Macrobid] 100 mg capsule 100 mg PO Q12H 7 Days Qty: 14 RF: 0 No Action oxycodone-acetaminophen [Percocet] 5-325 mg tablet 1 tab PO Q8H PRN (Reason: pain) Qty: 7 RF: 0 Discharge Orders: Discharge Order (Routine); Ordered 11/06/21 Ordered By: José Marie/Other Patient Handouts: Cephalexin Oral Capsule 500 mg, Flomax Oral Capsule 0.4 mg Admission Data Admit Date/Time: 11/04/21 06:34 Attending Provider: José Franklin Admit Provider: Davis Kruger Primary Care Provider: Lai Kathleen Other Providers: Davis Kruger ; Jadiel Shaver ; Raymond Villeda ; Eliceo Jean Baptiste ; Dione Karimi ; Ayush Tovar ; Daisha Mojica ; Ileana Moreira ; Maria Del Carmen Ríos ; Simone Ford ; Geovanny Santana ; Martha Pollard ; Madelin Ríos ; Vitor Pham Other Interventions: Discharge Summary Assessment (RN) Last Done: 11/06/21 13:13
== END 2021-11-06 14:45 | disposition home or self-care (01) | DRG 854 ==
LOC: ED 03:49 → EDINP 06:34 → SUATTDRO 06:34 → 2S 17:01